=== PATIENT | male | born 1945 | race Caucasian/White ===

== ENCOUNTER → 2023-10-30 21:57 | Day surgery (SDC) | payer OTHER, SELFPAY ==
[2023-10-30] VITALS (7 sets, daily range): BP systolic 133–153; BP diastolic 60–77; BMI 23.9
--- NOTE | 2023-10-30 20:26 | ED.GENMED ---
History of Present Illness
General
Chief Complaint: Swallowing Problem
Source: patient and spouse
Exam Limitations: none
Time Seen by Provider: 10/30/23 20:10
Travel History
Have you had any contact with someone who has COVID-19?: No
Do you have any symptoms of coronavirus? Fever > 100 degrees, chills, cough, shortness of breath, sore throat, loss of taste or smell, muscle aches, or headache?: No
History of Present Illness
History of Present Illness:
Eating a burger and has a food impaction x 3 hours. Unable to swallow saliva. No chest pain or shortness of breath. Has history of similar events but usually able to pass.
Past History
Past History
ED Past Medical History: HTN, Hypercholesterolemia and NIDDM
ED Past Surgical History: Appendectomy
Review of Systems
Review of Systems
All Other Systems: Not applicable
Constitutional: Denies fever
Respiratory: Reports no symptoms
Cardiac: Reports no symptoms
Phy Exam
Physical Exam
Physical Exam:
GENERAL: Alert and oriented in no apparent distress
EYE: Orbits normal.
NECK: Supple
ENT: No drooling or stridor speech normal
CARDIAC: Regular rate and rhythm without any obvious murmurs.
LUNGS: Clear breath sounds,normal
ABDOMEN: Soft, without focal tenderness or distention
NEUROLOGICAL: Alert and oriented , grossly non-focal
SKIN: Warm and dry
PSYCH: Normal and appropriate interaction.
Course
Orders/Labs/Results
Orders:
Orders
10/30/23 20:22
IV Insert/Care/Rem.- Treatment PRN
0.9% Sodium Chloride 500 ml [Nss] 500 ml IV BOLUS
10/30/23 20:43
Basic Metabolic Panel Urgent
Complete Blood Count/With Diff Urgent
10/30/23 20:56
Lidocaine HCl/Pf [Xylocaine-Mpf 1% Vial] 50 mg .ROUTE .STK-MED ONE
Propofol [Diprivan] 40 ml .ROUTE .STK-MED
Rocuronium Fromberg [Rocuronium] 50 mg .ROUTE .STK-MED ONE
Sugammadex Sodium [Bridion] 200 mg .ROUTE .STK-MED ONE
10/30/23 21:10
HYDROmorphone [Dilaudid] 0.25 mg IV PACU-Q5MPRN PRN
HYDROmorphone [Dilaudid] 0.5 mg IV PACU-Q5MPRN PRN
Meperidine [Demerol] 12.5 mg IV PACU-Q5MPRN PRN
Ondansetron Injectable [Zofran] 4 mg IV PACU-ONCEPRN PRN
Prochlorperazine [Compazine] 5 mg IV PACU-ONCEPRN PRN
Notify MD As Directed
Notify physician if: for SDS patients with known or suspected sleep obstructive sleep apnea, monitor in the
PACU.
Notify MD for any apneic/desaturation episodes
O2 Therapy [RESP] Urgent
Titrate/Wean O2 to maintain O2 sat greater than (%): 92
Special Instructions: -Provide supplemental oxygen to achieve O2 sat of 92% or greater.
-After 15 min, may wean O2 and discontinue if patient is able to maintain O2 sat of 92%
or greater during recovery period.
If patient is a discharge home, without oxygen therapy, notify anestheiologist if
unable to maintain O2 SAT of 92% or greater on room air for MD clearance.
10/30/23 21:15
Normosol (Mult Electrolytes) [Normosol-R] 1,000 ml IV PER PROTOCOL
10/30/23 22:00
Flush (0.9% Sodium Chloride) [Flush (Nss)] See Dose Instructions IV PER PROTOCOL
Abnormal Lab Results
10/30/23
20:43
MCH 31.2 H pg
(27.0-31.0)
Abs Immat Gran (auto) 0.1 H 10^3/uL
(0-0.05)
Absolute Neuts (auto) 6.8 H 10^3/uL
(1.4-6.5)
Absolute Monos (auto) 0.7 H 10^3/uL
(0.1-0.6)
Lymphocytes % 15.7 L %
(20.5-51.1)
Chloride 108 H mmol/L
(98-107)
Carbon Dioxide 20 L mmol/L
(22-30)
Glucose 115 H mg/dl
(70-99)
10/30/23 20:43
10/30/23 20:43
Vital Signs
Initial and Last Documented VS:
Initial Vital Signs
Temp Pulse Resp BP Pulse Ox
98.9 F 90 20 153/77 98
10/30/23 19:54 10/30/23 19:54 10/30/23 19:54 10/30/23 19:54 10/30/23 19:54
Last Documented Vital Signs
Temp Pulse Resp BP Pulse Ox
98.9 F 90 20 153/77 98
10/30/23 19:54 10/30/23 19:54 10/30/23 19:54 10/30/23 19:54 10/30/23 19:54
MDM/Problems Addressed
Differential Diagnosis Includes:
Consistent with esophageal foreign body. Discussed with GI who will take up for endoscopy
*Critical Care Note
Total Time (30-74mins, 75-104mins- exclusive of procedures): Not Applicable
ED Attending Note
-
Portions of this chart may have been created with voice recognition software.� Occasional wrong word or��sound alike� substitutions may have occurred due to the inherent limitations of voice recognition software.
Discharge Plan
Departure
Patient Disposition: Admit
Date of Disposition: 10/30/23
Time of Disposition: 20:28
Admit to: GI lab
Presentation/result/management discussed w/ accepting MD/DO: Gastroenterology
Discharge Problem:
Esophageal foreign body
Interventions
Interventions:
*Risk Screen - Suicide Last Done: 10/30/23 19:56
*General Assessment Last Done: 10/30/23 19:56
*Neglect/Abuse Screening Last Done: 10/30/23 19:56
ED- Fall Risk Assessment Last Done: 10/30/23 19:56
*ED COVID-19 Vaccine History Last Done: 10/30/23 19:56
*Nursing Disposition Last Done: 10/30/23 21:50
ED-EENT Assessment Last Done: 10/30/23 21:49
CX-Suwvzs-Hqsuwlayjz Assessment Last Done: 10/30/23 21:49
ED- Pulmonary Assessment Last Done: 10/30/23 21:49
ED- Neurological Assessment Last Done: 10/30/23 21:49
Discharge Date and Time
Discharge Date/Time: 10/30/23 21:51
Print Language: KYRGYZ
[2023-10-30] MEDS: NSS 500 IV (20:43)
[2023-10-30 21:03] LABS: % Basophils 0.3 % (0-2); % Eosinophils 2.6 % (0-6); % Immature Granulocytes 0.5 % (0-0.5); % Lymphocytes 15.7 % (20.5-51.1); % Monocytes 7.9 % (1.7-9.3); Absolute Eosinophils 0.2 10^3/uL (0-0.7); Absolute Immature Granulocytes 0.1 10^3/uL (0-0.05); Absolute Lymphocytes 1.5 10^3/uL (1.2-3.4); Absolute Monocytes 0.7 10^3/uL (0.1-0.6); Absolute Neutrophils 6.8 10^3/uL (1.4-6.5); Hematocrit 41.3 % (39.0-52.0); Hemoglobin 14.7 g/dL (13.0-18.0); Mean Corp Hgb Conc. 35.6 g/dL (33.0-37.0); Mean Corpuscular Hgb 31.2 pg (27.0-31.0); Mean Corpuscular Volume 87.7 fL (80.0-94.0); Mean Platelet Volume 9.7 fL (7.4-10.4); Nucleated Red Blood Cells % 0 % (-); Platelet Count 239 10^3/uL (130-400); Red Blood Cell Count 4.71 10^6/uL (4.70-6.10); Red Cell Dist. Width 12.4 % (11.5-14.5); White Blood Cell Count 9.3 10^3/uL (4.8-10.8)
[2023-10-30 21:08] LABS: Blood Urea Nitrogen 19 mg/dl (9-20); Calcium 9.6 mg/dl (8.4-10.2); Carbon Dioxide 20 mmol/L (22-30); Chloride 108 mmol/L (98-107); Glucose 115 mg/dl (70-99); Potassium 4.2 mmol/L (3.5-5.1); Sodium 140 mmol/L (135-145); eGFR > 60.00
--- NOTE | 2023-10-30 21:15 | CON.GI ---
Consultation
-
Date/Time Consultation Requested: 10/30/2023
Date/Time Consultation Performed: 10/30/2023
Requesting Provider: ED
Performing Provider: Isidoro ORNELAS
Reason for Consultation: food impaction
Medical History
Chief Complaint / HPI
Chief Complaint: dysphagia
History of Present Illness:
78 y/o male admitted to ED c/o sensation of food impaction after eating hamburger three hours back. Unable to swallow saliva. denies any chest pain/ SOB . intermittent difficulty swallowing in the past .no prior EGD
Past Medical History
Past Medical History: HTN, Hypercholesterolemia and NIDDM
Past Surgical History: Appendectomy
Social History
Alcohol: None
Drug: None
Allergies / Home Medications
Allergy/AdvReac Type Severity Reaction Status Date / Time
No Known Allergies Allergy Verified 10/30/23 19:56
Review of Systems
-
All other systems: A 12 pt ROS was Negative except as stated above in HPI
Vital Signs
Temp Pulse Resp BP Pulse Ox
98.9 F 90 20 153/77 98
10/30/23 19:54 10/30/23 19:54 10/30/23 19:54 10/30/23 19:54 10/30/23 19:54
Physical Exam
Exam
General: Well Developed
Respiratory: Clear
Cardiac: S1/S2
GI: Soft, Non Tender, Non Distended and Normal Bowel Sounds
Neuro: AO x 3
Results
Sodium 140 mmol/L (135-145) 10/30/23 20:43
Potassium 4.2 mmol/L (3.5-5.1) 10/30/23 20:43
Chloride 108 mmol/L (98-107) H 10/30/23 20:43
Carbon Dioxide 20 mmol/L (22-30) L 10/30/23 20:43
BUN 19 mg/dl (9-20) 10/30/23 20:43
Creatinine 0.8 mg/dL (0.7-1.3) 10/30/23 20:43
Calcium 9.6 mg/dl (8.4-10.2) 10/30/23 20:43
Diagnostic Image Results:
Prior GI Procedures:
EGD:
Colonoscopy:
Assessment / Plan
-
78 y/o male admitted with food impaction after eating hamburger three hours back. Unable to tolerate secretions .intermittent dysphagia in the past. No prior EGD
Food impaction
plan
NPO
will schedule urgent EGD with removal of food bolus
Total Time Spent with Patient (in minutes): 55
-
-
Thank you for consultation and allowing me to participate in the patient's care. Please call the contract project manager GI physician during the after hours with any questions or concerns.
[2023-10-30 22:40] LABS: Glucose - Point of Care 141 mg/dl (70-99)
== END ==
LOC: EMR 19:52 → GI 21:57
PROVIDERS: ATTENDING PHYSICIAN Internal Medicine Gastroenterology; EMERGENCY PHYSICIAN Emergency Medicine; FAMILY PHYSICIAN Internal Medicine
DX: C15.9 Malignant neoplasm of esophagus, unspecified (principal); K22.70 Barrett's esophagus without dysplasia; T18.128A Food in esophagus causing other injury, initial encounter; W44.F3XA Food entering into or through a natural orifice, initial encounter; K22.2 Esophageal obstruction; K31.89 Other diseases of stomach and duodenum
CPT/HCPCS: 43247; 43239; 88305; 80048; 82962; 85025; 88342; 88360; 96360; 99284

== ENCOUNTER → 2023-11-18 09:49 | Outpatient (REF) | payer OTHER, SELFPAY | LOC: RAD 09:49 | PROVIDERS: ATTENDING PHYSICIAN Internal Medicine Hematology & Oncology; FAMILY PHYSICIAN Internal Medicine | DX: C15.4 Malignant neoplasm of middle third of esophagus (principal) | CPT/HCPCS: 71260; 74177; Q9967 ==

== ENCOUNTER 2023-11-19 06:12 | Day surgery (SDC) | payer OTHER, SELFPAY ==
[2023-11-19 15:09] LABS: Glucose - Point of Care 127 mg/dl (70-99)
[2023-11-19 15:10] VITALS: BP 155/80
[2023-11-19 15:21] VITALS: BMI 23.2
[2023-11-19 16:45] VITALS: BP 119/68
[2023-11-19 17:00] VITALS: BP 132/71
[2023-11-19 17:13] VITALS: BP 132/69
== END 2023-11-19 17:38 | disposition home or self-care (01) ==
LOC: SDS 06:12
PROVIDERS: ATTENDING PHYSICIAN Internal Medicine Gastroenterology
DX: C15.9 Malignant neoplasm of esophagus, unspecified (principal); K22.2 Esophageal obstruction; K44.9 Diaphragmatic hernia without obstruction or gangrene; R59.0 Localized enlarged lymph nodes
CPT/HCPCS: 43259; 82962

== ENCOUNTER → 2024-01-10 16:04 | Outpatient (REF) | payer OTHER, SELFPAY ==
[2024-01-10 15:03] LABS: % Basophils 0.9 % (0-2); % Eosinophils 4.5 % (0-6); % Immature Granulocytes 0.3 % (0-0.5); % Lymphocytes 19.2 % (20.5-51.1); % Neutrophils 65.1 % (42.2-75.2); Absolute Basophils 0.1 10^3/uL (0-0.2); Absolute Eosinophils 0.3 10^3/uL (0-0.7); Absolute Lymphocytes 1.3 10^3/uL (1.2-3.4); Absolute Monocytes 0.7 10^3/uL (0.1-0.6); Absolute Neutrophils 4.4 10^3/uL (1.4-6.5); Hematocrit 42.5 % (39.0-52.0); Hemoglobin 15.1 g/dL (13.0-18.0); Mean Corp Hgb Conc. 35.5 g/dL (33.0-37.0); Mean Corpuscular Hgb 30.6 pg (27.0-31.0); Mean Corpuscular Volume 86.2 fL (80.0-94.0); Mean Platelet Volume 10.2 fL (7.4-10.4); Nucleated Red Blood Cells % 0 % (-); Platelet Count 257 10^3/uL (130-400); Red Blood Cell Count 4.93 10^6/uL (4.70-6.10); Red Cell Dist. Width 12.7 % (11.5-14.5); White Blood Cell Count 6.7 10^3/uL (4.8-10.8)
[2024-01-10 15:15] LABS: ALT (SGPT) 22 U/L (0-50); AST (SGOT) 24 U/L (17-59); Albumin 4.5 g/dl (3.5-5.0); Alkaline Phosphatase 84 U/L (38-126); Blood Urea Nitrogen 21 mg/dl (9-20); Calcium 9.4 mg/dl (8.4-10.2); Carbon Dioxide 24 mmol/L (22-30); Chloride 103 mmol/L (98-107); Glucose 150 mg/dl (70-99); Potassium 4.9 mmol/L (3.5-5.1); Sodium 135 mmol/L (135-145); Total Bilirubin 0.9 mg/dl (0.2-1.3); Total Protein 7.1 g/dl (6.3-8.2); eGFR > 60.00
== END ==
LOC: OIDL 16:04
PROVIDERS: ATTENDING PHYSICIAN Internal Medicine Hematology & Oncology
DX: C15.4 Malignant neoplasm of middle third of esophagus (principal)
CPT/HCPCS: 80053; 85025

== ENCOUNTER → 2024-01-26 13:25 | Outpatient (REF) | payer OTHER, SELFPAY ==
[2024-01-26 11:27] LABS: % Basophils 0.1 % (0-2); % Eosinophils 1.8 % (0-6); % Immature Granulocytes 0.9 % (0-0.5); % Monocytes 4.9 % (1.7-9.3); % Neutrophils 89.3 % (42.2-75.2); Absolute Eosinophils 0.1 10^3/uL (0-0.7); Absolute Immature Granulocytes 0.1 10^3/uL (0-0.05); Absolute Lymphocytes 0.2 10^3/uL (1.2-3.4); Absolute Monocytes 0.3 10^3/uL (0.1-0.6); Hematocrit 44.3 % (39.0-52.0); Hemoglobin 15.5 g/dL (13.0-18.0); Mean Corpuscular Hgb 30.8 pg (27.0-31.0); Mean Corpuscular Volume 87.9 fL (80.0-94.0); Mean Platelet Volume 10.1 fL (7.4-10.4); Platelet Count 200 10^3/uL (130-400); Red Blood Cell Count 5.04 10^6/uL (4.70-6.10); Red Cell Dist. Width 11.9 % (11.5-14.5); White Blood Cell Count 6.7 10^3/uL (4.8-10.8)
[2024-01-26 13:54] LABS: ALT (SGPT) 18 U/L (0-50); AST (SGOT) 21 U/L (17-59); Albumin 4.4 g/dl (3.5-5.0); Alkaline Phosphatase 100 U/L (38-126); Blood Urea Nitrogen 29 mg/dl (9-20); Calcium 9.3 mg/dl (8.4-10.2); Carbon Dioxide 23 mmol/L (22-30); Chloride 99 mmol/L (98-107); Glucose 282 mg/dl (70-99); Potassium 4.8 mmol/L (3.5-5.1); Sodium 131 mmol/L (135-145); Total Bilirubin 1.1 mg/dl (0.2-1.3); Total Protein 6.9 g/dl (6.3-8.2); eGFR > 60.00
== END ==
LOC: OIDL 13:25
PROVIDERS: ATTENDING PHYSICIAN Internal Medicine Hematology & Oncology
DX: C15.4 Malignant neoplasm of middle third of esophagus (principal)
CPT/HCPCS: 80053; 85025

== ENCOUNTER 2024-02-06 00:49 | Emergency (ER) | payer OTHER, SELFPAY ==
[2024-02-06 00:53] VITALS: BP 122/64
--- NOTE | 2024-02-06 01:11 | ED.GENMED ---
History of Present Illness
<Christian Herrera DO - Last Filed: 02/06/24 05:32>
General
Chief Complaint: Chest Pain
Time Seen by Provider: 02/06/24 01:02
<MONCHO Yadav (Lenka) - Last Filed: 02/07/24 00:12>
General
Source: patient and spouse
Exam Limitations: none
Nursing documentation reviewed up to this point in time: agreed with
History of Present Illness
History of Present Illness:
Pt is a 78yo male with PMHx esophageal CA (receiving chemo/radiation, last treatment 3d ago, 02/02), HTN/HLD, NIDDM who presents to the ED with concerns over chest pain x 6 hours. Around 1900 last night (02/04) pt was sitting watching TV when
he developed sudden onset aching to B/L upper chest, posterior neck, top of the head, and under B/L eyes. He took Tylenol at this time. At 2330 he took Advil, with no relief. He reports dyspnea with inspiration, and both the pain/dyspnea are worse
when supine. He endorses epigastric/periumbilical pain new in onset. He has also since developed a dull BERNARDO to B/L temples. He notes that he always has intermittent R infraorbital sinus pressure, but it is worse right now. Pt states that when laying
he does not feel lightheaded, but if he stood up believes he would feel lightheaded and imbalanced. He denies fevers, chills, dizziness, dysphagia, rhinorrhea/congestion, tinnitus, N/V, chest palpitations, muscle weakness changes to urination,
rashes. He does note that he may be constipated as his last BM was 2d ago, but it was formed. No recent illness, no known sick contacts, no recent travel, no known injury.
Flushing noted to upper chest, per , the flushing may be a side effect of radiation, but she has never noticed this with prior treatments.
Pt has had treatments for his esophageal cancer with no complications or side effects prior.
Past History
<Christian Herrera DO - Last Filed: 02/06/24 05:32>
Past History
ED Past Medical History: HTN, Hypercholesterolemia and NIDDM
ED Past Surgical History: Appendectomy
<MONCHO Yadav (Lenka) - Last Filed: 02/07/24 00:12>
Past History
ED Past Medical History: Cancer (esophageal s/p radiation and chemotherapy (01/2024))
Social History
Personal:
Living: with family
Phy Exam
<MONCHO Yadav (Lenka) - Last Filed: 02/07/24 00:12>
General Physical Exam
General Presentation: moderate distress (when reclined/supine, pt only comfortable in bed when sitting near 75-90 degree lauren)
General age: appears stated age
General Skin: warm, flushed (mildly flushed in shawl distribution) and other (clammy skin on back)
General Habitus: normal and elderly
General Mental: alert
General Hydration: appears well hydrated
ENT Exam
ENT Exam: lymphnodes (non-tender, non-palpable lymphadenopathy) and swallowing well
Eye Exam
Eye Exam: conjunctiva normal
Cardiovascular Exam
Cardiovascular Exam: regular rate/rhythm, no edema, no gallop and no murmur
Heart Sounds: normal
Pulmonary Exam
Pulmonary Exam: lungs clear, no respiratory distress, no rales, chest non tender (chest pain not reproducible), no rhonchi and no wheezing
Oxygen Status: room air
Cough: no cough
Gastrointestinal Exam
Gastrointestinal Exam: normal bowel sounds, soft, non distended and tender (epigastric)
Palpation: left upper quadrant: No tenderness, left lower quadrant: No tenderness, right upper quadrant: No tenderness, right lower quadrant: No tenderness and generalized: Other (epigastric)
Auscultation of Abdomen: normal
Neurological Exam
Neurological Exam: alert, oriented x3 and speech normal
Scores
<ST Yadav (Lenka)CA - Last Filed: 02/07/24 00:12>
Heart Score for Chest Pain Patients
STEMI patient?: No
History: Slightly or Non-Suspicious
ECG: Nonspecific Repolarization
Age: >/= 65 years
Risk Factors: 1 or 2 Risk Factors
Troponin: >1 - <3 x Normal Limit
Heart Score for Chest Pain Patients: 5
Heart Score Risk: 20.3% MACE over next 6 weeks
Course
<Christian Herrera DO - Last Filed: 02/06/24 05:32>
Orders/Labs/Results
Orders:
Orders
02/06/24 00:57
Electrocardiogram (*1) Urgent
Reason for Study: Chest Pain
EKG- Treatment ONCE
02/06/24 01:12
Electrocardiogram (*1) Stat
Reason for Study: Other
Other Reason for Exam: chest pain
EKG- Treatment ONCE
02/06/24 01:40
Complete Blood Count/With Diff Urgent
Comprehensive Metabolic Panel Urgent
Magnesium Urgent
NT-proBNP Urgent
PTT Urgent
Prothrombin Time Urgent
TSH Urgent
Troponin I Urgent
02/06/24 02:09
Morphine Sulfate 4 mg IV NOW STA
Ondansetron Injectable [Zofran] 4 mg IV NOW STA
02/06/24 02:17
Heparin Pf [Heparin Lock Flush] 500 unit .ROUTE .STK-MED ONE
02/06/24 02:[address] [CT Chest Pe Study] Urgent
Comment:
Reason For Exam: new onset chest pain
02/06/24 03:59
Ibuprofen [Motrin] 600 mg PO NOW STA
02/06/24 04:35
Troponin I Urgent
Abnormal Lab Results
02/06/24
01:40
RBC 4.26 L 10^6/uL
(4.70-6.10)
Hct 36.0 L %
(39.0-52.0)
Absolute Lymphs (auto) 0.1 L 10^3/uL
(1.2-3.4)
Neutrophils % 90.6 H %
(42.2-75.2)
Lymphocytes % 1.4 L %
(20.5-51.1)
Sodium 131 L mmol/L
(135-145)
Carbon Dioxide 20 L mmol/L
(22-30)
Glucose 151 H mg/dl
(70-99)
02/06/24 01:40
02/06/24 01:40
Vital Signs
Initial and Last Documented VS:
Initial Vital Signs
Temp Pulse Resp BP Pulse Ox
97.9 F 112 24 122/64 100
02/06/24 00:53 02/06/24 00:53 02/06/24 00:53 02/06/24 00:53 02/06/24 00:53
Last Documented Vital Signs
Temp Pulse Resp BP Pulse Ox
98.4 F 101 20 111/65 98
02/06/24 01:12 02/06/24 04:30 02/06/24 04:30 02/06/24 04:00 02/06/24 04:30
<MONCHO Yadav (Lenka) - Last Filed: 02/07/24 00:12>
Orders/Labs/Results
Orders:
Orders
02/06/24 00:57
Electrocardiogram (*1) Urgent
Reason for Study: Chest Pain
EKG- Treatment ONCE
02/06/24 01:12
Electrocardiogram (*1) Stat
Reason for Study: Other
Other Reason for Exam: chest pain
EKG- Treatment ONCE
02/06/24 01:40
Complete Blood Count/With Diff Urgent
Comprehensive Metabolic Panel Urgent
Magnesium Urgent
NT-proBNP Urgent
PTT Urgent
Prothrombin Time Urgent
TSH Urgent
Troponin I Urgent
02/06/24 02:09
Morphine Sulfate 4 mg IV NOW STA
Ondansetron Injectable [Zofran] 4 mg IV NOW STA
02/06/24 02:17
Heparin Pf [Heparin Lock Flush] 500 unit .ROUTE .STK-MED ONE
02/06/24 02:[address] [CT Chest Pe Study] Urgent
Comment:
Reason For Exam: new onset chest pain
02/06/24 03:59
Ibuprofen [Motrin] 600 mg PO NOW STA
02/06/24 04:35
Troponin I Urgent
Abnormal Lab Results
02/06/24
01:40
RBC 4.26 L 10^6/uL
(4.70-6.10)
Hct 36.0 L %
(39.0-52.0)
Absolute Lymphs (auto) 0.1 L 10^3/uL
(1.2-3.4)
Neutrophils % 90.6 H %
(42.2-75.2)
Lymphocytes % 1.4 L %
(20.5-51.1)
Sodium 131 L mmol/L
(135-145)
Carbon Dioxide 20 L mmol/L
(22-30)
Glucose 151 H mg/dl
(70-99)
02/06/24 01:40
02/06/24 01:40
Vital Signs
Initial and Last Documented VS:
Initial Vital Signs
Temp Pulse Resp BP Pulse Ox
97.9 F 112 24 122/64 100
08/18/24 00:53 02/06/24 00:53 02/06/24 00:53 02/06/24 00:53 02/06/24 00:53
Last Documented Vital Signs
Temp Pulse Resp BP Pulse Ox
98.4 F 101 20 111/65 98
02/06/24 01:12 02/06/24 04:30 02/06/24 04:30 02/06/24 04:00 02/06/24 04:30
<MONCHO Yadav (Lenka) - Last Filed: 02/07/24 00:12>
MDM/Problems Addressed
Differential Diagnosis Includes:
DDx: ACS vs complication s/p chemo/radiation vs
Pt with esophageal cancer s/p receiving radiation/chemo (round ) 3d ago on 02/02 presenting with 6 hours of upper chest pain from the nipple line up through the scalp, worse with inspiration, worse in posterior neck. Chest and neck pain not
reproducible on exam. Able to reproduce epigastric pain.
Will order CBC, CMP, troponin, TSH, pro-BNP, coag panel, EKG, magnesium.
EKG (106) - sinus tachycardia, inferior infarct (age undetermined) (machine read)
EKG (116) - sinus tachycardia (machine read)
Chronic conditions affecting care: Cancer (esophageal CA s/p radiation and chemotherapy, last treatment 02/03/24)
<MONCHO Yadav (Lenka) - Last Filed: 02/07/24 00:12>
*Critical Care Note
Total Time (30-74mins, 75-104mins- exclusive of procedures): Not Applicable
<Christian Herrera DO - Last Filed: 02/06/24 05:32>
Update Note
Update Note:
Initial Troponin I (0140) - 0.031
02/05 0335 - pt still in pain with inspiration, posterior neck pain. Minimal relief with morphine. Pt not requesting any more pain medication.
CTA chest with IV contrast
IMPRESSION:
No pulmonary embolus. Aortic atherosclerotic disease. Coronary artery disease.
Mild cardiomegaly. Small pericardial effusion. No pneumothorax or pleural effusion. Central airways patent. Dependent atelectasis. Calcified right adrenal nodule is similar to prior imaging.
Finalized at 3:36 AM EST
<MONCHO Yadav (Lenka) - Last Filed: 02/07/24 00:12>
Update Note
Update Note:
02/05 0335 - pt still in pain with inspiration, posterior neck pain. Minimal relief with morphine. Pt not requesting any more pain medication.
CTA chest with IV contrast
IMPRESSION:
No pulmonary embolus. Aortic atherosclerotic disease. Coronary artery disease.
Mild cardiomegaly. Small pericardial effusion. No pneumothorax or pleural effusion. Central airways patent. Dependent atelectasis. Calcified right adrenal nodule is similar to prior imaging.
Finalized at 3:36 AM EST
02/05 0400 - pt requesting motrin, does not want more morphine. Informed pt of plan to redraw troponin at 0430
Initial Troponin I (0140) - 0.031
Repeat Troponin I (0435) - 0.019
02/05 0509 - pt comfortable laying supine with slight head elevation. states he feels comfortable going home with outpatient f/u with his radiation doc in 2d (Wednesday 02/07)
ED Attending Note
<Christian Herrera DO - Last Filed: 02/06/24 05:32>
ED Attending Note
Patient seen and examined by attending physician: Yes
I performed the substantive portion of visit, reviewed & personally made and approve the management plan that is documented in note by myself or DONNELL.: Yes
ED Attending Note:
Pleasant 78-year-old male that presents with chest pain that is been present for the last 6 hours. Patient has a recent history of esophageal cancer this receiving chemotherapy and radiation with his last treatment 3 days ago. Patient also
complains of left-sided neck pain. He has been lightheaded and dizzy. Patient denies fever or chills. Patient was seen in conjunction with the PA student. I have reviewed and agree with the history and treatment plan presented. On my
independent physical exam, patient is awake, alert, and oriented x3, moderate acute distress secondary to neck pain and dyspnea. Heart is regular rate and rhythm. Lungs are clear without wheezes rales or rhonchi present. No edema present.
-
Portions of this chart may have been created with voice recognition software.� Occasional wrong word or��sound alike� substitutions may have occurred due to the inherent limitations of voice recognition software.
Discharge Plan
Departure
Patient Disposition: Home (Routine Discharge)
Date of Disposition: 02/06/24
Time of Disposition: 05:08
Patient with high blood pressure during this ER visit?: No
Condition: Good
Discharge Problem:
Chest pain
Instructions: Chest Pain DCA Follow Up, Chest Pain PCP Follow Up
Prescriptions:
No Action
metformin 500 mg Tablet
500 mg PO DAILY
repaglinide 1 mg Tablet
1 mg PO BID
rosuvastatin 40 mg Tablet
40 mg PO DAILY
Januvia 100 mg Tablet
100 mg PO DAILY
Jardiance 10 mg Tablet
10 mg PO DAILY
lisinopril
12.5 mg PO HS
Referrals:
Jesus Alvarez MD [Family Provider] -
Activity Restrictions/Additional Instructions:
It was a pleasure meeting you and taking part in your care. We hope for your continued healing and wellness.
Please read discharge instructions in their entirety. However, they are for general education and may not describe your exact diagnosis at discharge. Information on your ER visit and medical conditions were discussed with you along with appropriate
follow up information...
If indicated, please take your medications as instructed and indicated on discharge paperwork.
Please schedule a follow up appointment as directed. Call to schedule an appointment
Please return to the emergency department with ANY change in, persisting, or worsening of symptoms. If any of your symptoms do not improve, or persist, or become more severe within 6-12 hours, please return to the emergency department for further
care.
Please return to the emergency department if you develop a headache, neck pain/stiffness, fever greater than 100.4F, chest pain, shortness of breath, persistent nausea, vomiting, slurred speech, difficulty walking, numbness/tingling, weakness, signs
of infection or any other symptoms that are worrisome to you.
If you have any questions or concerns please do not hesitate to call the Hospital at or E-mail me directly at [email or web address]
Interventions
Interventions:
*Risk Screen - Suicide Last Done: 02/06/24 01:12
*General Assessment Last Done: 02/06/24 01:12
*Neglect/Abuse Screening Last Done: 02/06/24 01:12
ED- Fall Risk Assessment Last Done: 02/06/24 05:45
*ED COVID-19 Vaccine History Last Done: 02/06/24 01:12
*Nursing Disposition Last Done: 02/06/24 05:45
ED- Cardiac Assessment Last Done: 02/06/24 01:12
Discharge Date and Time
Discharge Date/Time: 02/06/24 05:45
Print Language: MAORI
[2024-02-06 01:12] VITALS: BMI 22.8
[2024-02-06 01:15] VITALS: BP 107/69
[2024-02-06 01:57] LABS: % Basophils 0.3 % (0-2); % Eosinophils 0.8 % (0-6); % Immature Granulocytes 0.5 % (0-0.5); % Lymphocytes 1.4 % (20.5-51.1); % Monocytes 6.4 % (1.7-9.3); % Neutrophils 90.6 % (42.2-75.2); Absolute Eosinophils 0.1 10^3/uL (0-0.7); Absolute Lymphocytes 0.1 10^3/uL (1.2-3.4); Absolute Monocytes 0.4 10^3/uL (0.1-0.6); Absolute Neutrophils 5.7 10^3/uL (1.4-6.5); Hemoglobin 13.2 g/dL (13.0-18.0); Mean Corp Hgb Conc. 36.7 g/dL (33.0-37.0); Mean Corpuscular Volume 84.5 fL (80.0-94.0); Mean Platelet Volume 10.3 fL (7.4-10.4); Nucleated Red Blood Cells % 0 % (-); Platelet Count 169 10^3/uL (130-400); Red Blood Cell Count 4.26 10^6/uL (4.70-6.10); Red Cell Dist. Width 12.4 % (11.5-14.5); White Blood Cell Count 6.3 10^3/uL (4.8-10.8)
[2024-02-06 02:00] VITALS: BP 105/60
[2024-02-06 02:01] LABS: ALT (SGPT) 17 U/L (0-50); AST (SGOT) 22 U/L (17-59); Albumin 3.9 g/dl (3.5-5.0); Alkaline Phosphatase 87 U/L (38-126); Blood Urea Nitrogen 19 mg/dl (9-20); Calcium 8.9 mg/dl (8.4-10.2); Carbon Dioxide 20 mmol/L (22-30); Chloride 104 mmol/L (98-107); Estimated Creatinine Clearance 74 ml/min; Glucose 151 mg/dl (70-99); Magnesium 1.8 mg/dl (1.6-2.3); Potassium 4.2 mmol/L (3.5-5.1); Sodium 131 mmol/L (135-145); Total Bilirubin 0.8 mg/dl (0.2-1.3); Total Protein 6.3 g/dl (6.3-8.2); eGFR > 60.00
[2024-02-06 02:05] LABS: INR 1.02; PT 13.2 Sec (11.4-14.6)
[2024-02-06 02:06] LABS: APTT 29.2 Sec (23.4-35.0)
[2024-02-06 02:15] LABS: NT-proBNP 393 pg/ml; Troponin I 0.031 ng/ml
[2024-02-06] MEDS: ZOFRAN 4 MG IV (02:19)
[2024-02-06] MEDS: MORPHINE SULFATE 4 MG IV (02:20)
[2024-02-06 02:32] LABS: TSH 1.36 uIU/ml (0.47-4.68)
[2024-02-06 03:00] VITALS: BP 100/59
[2024-02-06 04:00] VITALS: BP 111/65
[2024-02-06] MEDS: MOTRIN 600 MG PO (04:27)
[2024-02-06 05:05] LABS: Troponin I 0.019 ng/ml
== END 2024-02-06 05:45 | disposition home or self-care (01) ==
LOC: EMR 00:49
PROVIDERS: EMERGENCY PHYSICIAN Student in an Organized Health Care Education/Training Program; FAMILY PHYSICIAN Internal Medicine
DX: R07.89 Other chest pain (principal); I10 Essential (primary) hypertension; E78.00 Pure hypercholesterolemia, unspecified; E11.9 Type 2 diabetes mellitus without complications; C15.9 Malignant neoplasm of esophagus, unspecified
CPT/HCPCS: 99285; 96374; 96375; 71275; 80053; 83735; 83880; 84443; 84484; 85025; 85610; 85730; 93005; Q9967

== ENCOUNTER 2024-04-27 06:12 | Day surgery (SDC) | payer OTHER, SELFPAY ==
[2024-04-27 11:28] VITALS: BMI 24.0
[2024-04-27 11:30] VITALS: BMI 24.0
[2024-04-27 11:33] VITALS: BP 144/76
[2024-04-27 11:39] LABS: Glucose - Point of Care 167 mg/dl (70-99)
[2024-04-27 13:34] LABS: Glucose - Point of Care 147 mg/dl (70-99)
[2024-04-27 16:06] VITALS: BP 95/62
[2024-04-27 16:15] VITALS: BP 96/60
[2024-04-27 16:33] LABS: Glucose - Point of Care 127 mg/dl (70-99)
== END 2024-04-27 16:38 | disposition home or self-care (01) ==
LOC: SDS 06:12
PROVIDERS: ATTENDING PHYSICIAN Internal Medicine Gastroenterology
DX: C15.9 Malignant neoplasm of esophagus, unspecified (principal); K22.89 Other specified disease of esophagus; K22.10 Ulcer of esophagus without bleeding
CPT/HCPCS: 43239; 88305; 82962; 88342

== ENCOUNTER 2024-06-26 14:39 | Emergency (ER) | payer OTHER, SELFPAY ==
[2024-06-26 14:47] VITALS: BP 150/73
--- NOTE | 2024-06-26 14:51 | ED.GENMED ---
ED Provider Triage
<Jason Sykes Jr., PA-C - Last Filed: 06/26/24 14:52>
-
Patient seen by provider in Triage?: Seen in Triage
Attestation: A medical screening examination has been initiated by a qualified medical provider. Based on the assessment performed at this time, it has been determined that an emergent medical condition may exist and the patient has been informed
that further medical evaluation and possible additional diagnostic testing may be needed.
HPI: 78-year-old male presenting to the emergency department after passing out twice this morning. First event was in at home felt lightheaded passed out to the ground unsure of any specific trauma then was brushing off some snow outside had a
similar event unwitnessed. Unsure if he hit his head. Not on blood thinners. Labs EKG and CT scan ordered for further assessment. Currently without significant symptoms.
GENERAL: Alert , in no apparent distress
EYE: No visual abnormalities.
NECK: Trachea midline
ENT: No visible abnormalities.
LUNGS: No acute respiratory distress
NEUROLOGICAL: Alert and oriented
SKIN: Skin intact. No visible changes.
MUSCULOSKELETAL: Moving extremities normally
PSYCH: Normal and appropriate interaction.
This is a medical evaluation conducted in person to initiate diagnostic evaluation and provide initial therapeutics. Please see further documentation by the treating clinician.
History of Present Illness
<Jason Sykes Jr., PA-C - Last Filed: 06/26/24 14:52>
General
Chief Complaint: Fainting/Passed Out
Time Seen by Provider: 06/26/24 18:18
<Ricardo Valadez PA-C - Last Filed: 06/26/24 19:00>
General
Source: patient
Exam Limitations: none
History of Present Illness
History of Present Illness:
78-year-old male presents for evaluation of passing out episode x 2 today. This morning he was walking around the house he sat down after blowing his nose and he started feeling lightheaded and fell over onto the floor. His heard him fall and
he was awake and alert when she encountered him. He was feeling well he was going about his normal routine afterwards and was outside brushing snow off a car and again he felt lightheaded and he found himself on the ground. There was no chest pain
headache or injury from these falls. He was able to get himself off the ground and walk himself inside the house. Since being here he states he is felt normal he denies chest pain vomiting shortness of breath dizziness lightheadedness headache
currently. He has a history of esophageal cancer requiring chemo and radiation which was finished in January 2024. No recent travel or surgery. No leg swelling or calf pain. He is not anticoagulated. No other complaints at this time
Past History
<Jason Sykes Jr., PA-C - Last Filed: 06/26/24 14:52>
Past History
ED Past Medical History: Cancer (esophageal s/p radiation and chemotherapy (01/2024)), HTN, Hypercholesterolemia and NIDDM
ED Past Surgical History: Appendectomy
Social History
Personal:
Living: with family
Phy Exam
<Ricardo Valadez PA-C - Last Filed: 06/26/24 19:00>
Physical Exam
Physical Exam:
General: Well-appearing male no acute respiratory distress
HEENT: Normocephalic atraumatic
Heart: Regular rate and rhythm no murmurs
Lungs: Clear no wheeze
Neurologic exam: Alert and oriented normal gait no facial asymmetry no dysarthria or aphasia
Musculoskeletal exam: No spine tenderness. Good range of motion all extremities
Abdomen is soft nontender nondistended no guarding or rebound
Course
<SUNDAY Umana Jr. Last Filed: 06/26/24 14:52>
Orders/Labs/Results
Orders:
Orders
06/26/24 14:41
Electrocardiogram (*1) Urgent
Reason for Study: Syncope
06/26/24 14:42
EKG- Treatment ONCE
06/26/24 14:50
CT Head W/o Iv Contrast Urgent
Comment:
Reason For Exam: syncope, unknown head strike
06/26/24 14:52
Complete Blood Count/With Diff Urgent
Comprehensive Metabolic Panel Urgent
Troponin I Urgent
Abnormal Lab Results
06/26/24
14:52
RBC 4.60 L 10^6/uL
(4.70-6.10)
MCH 31.5 H pg
(27.0-31.0)
Absolute Lymphs (auto) 0.6 L 10^3/uL
(1.2-3.4)
Neutrophils % 79.5 H %
(42.2-75.2)
Lymphocytes % 8.5 L %
(20.5-51.1)
Glucose 114 H mg/dl
(70-99)
06/26/24 14:52
06/26/24 14:52
Vital Signs
Initial and Last Documented VS:
Initial Vital Signs
Temp Pulse Resp BP Pulse Ox
98.4 F 86 18 150/73 100
06/26/24 14:47 06/26/24 14:47 06/26/24 14:47 06/26/24 14:47 06/26/24 14:47
Last Documented Vital Signs
Temp Pulse Resp BP Pulse Ox
97.9 F 94 18 142/72 97
06/26/24 17:11 06/26/24 17:11 06/26/24 17:11 06/26/24 17:11 06/26/24 17:11
<Ricardo Valadez PA-C - Last Filed: 06/26/24 19:00>
Orders/Labs/Results
Orders:
Orders
06/26/24 14:41
Electrocardiogram (*1) Urgent
Reason for Study: Syncope
06/26/24 14:42
EKG- Treatment ONCE
06/26/24 14:50
CT Head W/o Iv Contrast Urgent
Comment:
Reason For Exam: syncope, unknown head strike
06/26/24 14:52
Complete Blood Count/With Diff Urgent
Comprehensive Metabolic Panel Urgent
Troponin I Urgent
Abnormal Lab Results
06/26/24
14:52
RBC 4.60 L 10^6/uL
(4.70-6.10)
MCH 31.5 H pg
(27.0-31.0)
Absolute Lymphs (auto) 0.6 L 10^3/uL
(1.2-3.4)
Neutrophils % 79.5 H %
(42.2-75.2)
Lymphocytes % 8.5 L %
(20.5-51.1)
Glucose 114 H mg/dl
(70-99)
06/26/24 14:52
06/26/24 14:52
Vital Signs
Initial and Last Documented VS:
Initial Vital Signs
Temp Pulse Resp BP Pulse Ox
98.4 F 86 18 150/73 100
06/26/24 14:47 06/26/24 14:47 06/26/24 14:47 06/26/24 14:47 06/26/24 14:47
Last Documented Vital Signs
Temp Pulse Resp BP Pulse Ox
97.9 F 94 18 142/72 97
06/26/24 17:11 06/26/24 17:11 06/26/24 17:11 06/26/24 17:11 06/26/24 17:11
<Ricardo Valadez PA-C - Last Filed: 06/26/24 19:00>
MDM/Problems Addressed
Differential Diagnosis Includes:
Falls x 2. Question syncope. Unlikely to be seizure and there is no description of postictal phase. Concern for arrhythmia anemia electrolyte abnormality or vasovagal episodes
Patient has no complaints currently. He has been waiting in the waiting room states he feels fine and expresses his desire to go home. Workup was initiated through triage. CT head normal. Labs reviewed without significant finding no electrolyte
abnormality. EKG initially showed sinus tachycardia with a rate of 103. He has chronic Q waves inferiorly. No new findings on the EKG.
He has been ambulatory here and has not had any further symptoms.
Discussed with patient regarding treatment options given the multiple episodes of syncope would consider keeping him in the hospital however patient would rather go home. I would recommend he does not drive until cleared to do so by cardiology. He
will be referred to cardiology. Turn precautions were given.
<Ricardo Valadez PA-C - Last Filed: 06/26/24 19:00>
*Critical Care Note
Total Time (30-74mins, 75-104mins- exclusive of procedures): Not Applicable
ED Attending Note
<Jason Sykes Jr., PA-C - Last Filed: 06/26/24 14:52>
-
Portions of this chart may have been created with voice recognition software.� Occasional wrong word or��sound alike� substitutions may have occurred due to the inherent limitations of voice recognition software.
Discharge Plan
Departure
Patient Disposition: Home (Routine Discharge)
Date of Disposition: 06/26/24
Time of Disposition: 18:59
Patient with high blood pressure during this ER visit?: No
Discharge Problem:
Syncope
Instructions: Syncope (Fainting) (DC)
Prescriptions:
No Action
metformin 500 mg Tablet
500 mg PO DAILY
repaglinide 1 mg Tablet
1 mg PO TID
rosuvastatin 40 mg Tablet
40 mg PO DAILY
Januvia 100 mg Tablet
100 mg PO DAILY
Jardiance 10 mg Tablet
10 mg PO DAILY
lisinopril-hydrochlorothiazide 10-12.5 mg Tablet
1 tab PO DAILY
Referrals:
Jesus Alvarez MD [Family Provider] -
Tru Castillo MD [Active] -
Activity Restrictions/Additional Instructions:
Stay hydrated. Please return here for any worsening symptoms. Recommend you do not drive until cleared to do so by cardiology.
Discharge Date and Time
Print Language: CITIZEN OF [place]
[2024-06-26 15:16] LABS: % Basophils 0.6 % (0-2); % Immature Granulocytes 0.5 % (0-0.5); % Lymphocytes 8.5 % (20.5-51.1); % Monocytes 8.9 % (1.7-9.3); % Neutrophils 79.5 % (42.2-75.2); Absolute Eosinophils 0.1 10^3/uL (0-0.7); Absolute Lymphocytes 0.6 10^3/uL (1.2-3.4); Absolute Monocytes 0.6 10^3/uL (0.1-0.6); Absolute Neutrophils 5.1 10^3/uL (1.4-6.5); Hematocrit 42.4 % (39.0-52.0); Hemoglobin 14.5 g/dL (13.0-18.0); Mean Corp Hgb Conc. 34.2 g/dL (33.0-37.0); Mean Corpuscular Hgb 31.5 pg (27.0-31.0); Mean Corpuscular Volume 92.2 fL (80.0-94.0); Mean Platelet Volume 9.3 fL (7.4-10.4); Nucleated Red Blood Cells % 0 % (-); Platelet Count 221 10^3/uL (130-400); Red Cell Dist. Width 12.3 % (11.5-14.5); White Blood Cell Count 6.4 10^3/uL (4.8-10.8)
[2024-06-26 15:27] LABS: ALT (SGPT) 21 U/L (0-50); AST (SGOT) 23 U/L (17-59); Albumin 4.4 g/dl (3.5-5.0); Alkaline Phosphatase 102 U/L (38-126); Blood Urea Nitrogen 19 mg/dl (9-20); Calcium 9.2 mg/dl (8.4-10.2); Carbon Dioxide 25 mmol/L (22-30); Chloride 103 mmol/L (98-107); Glucose 114 mg/dl (70-99); Potassium 4.4 mmol/L (3.5-5.1); Sodium 138 mmol/L (135-145); Total Bilirubin 0.5 mg/dl (0.2-1.3); Total Protein 7.1 g/dl (6.3-8.2); eGFR > 60.00
[2024-06-26 15:39] LABS: Troponin I < 0.012 ng/ml
[2024-06-26 17:11] VITALS: BP 142/72
== END 2024-06-26 19:31 | disposition home or self-care (01) ==
LOC: EMR 14:39
PROVIDERS: Physician Assistant; EMERGENCY PHYSICIAN Emergency Medicine; FAMILY PHYSICIAN Internal Medicine
DX: R55 Syncope and collapse (principal); I10 Essential (primary) hypertension; E78.00 Pure hypercholesterolemia, unspecified; E11.9 Type 2 diabetes mellitus without complications; W18.39XA Other fall on same level, initial encounter; Z90.49 Acquired absence of other specified parts of digestive tract; Z92.21 Personal history of antineoplastic chemotherapy; Z92.3 Personal history of irradiation; R42 Dizziness and giddiness
CPT/HCPCS: 99284; 70450; 80053; 84484; 85025; 93005

== ENCOUNTER 2024-06-28 12:01 | Inpatient (IN) | payer OTHER, SELFPAY ==
[2024-06-27] VITALS (17 sets, daily range): BP systolic 125–166; BP diastolic 65–108; PULSE 86–96; BMI 22.9; BMI 23.2
[2024-06-27 11:38] LABS: % Basophils 0.5 % (0-2); % Eosinophils 0.8 % (0-6); % Immature Granulocytes 0.3 % (0-0.5); % Lymphocytes 4.4 % (20.5-51.1); % Monocytes 6.6 % (1.7-9.3); % Neutrophils 87.4 % (42.2-75.2); Absolute Eosinophils 0.1 10^3/uL (0-0.7); Absolute Lymphocytes 0.3 10^3/uL (1.2-3.4); Absolute Monocytes 0.5 10^3/uL (0.1-0.6); Absolute Neutrophils 6.8 10^3/uL (1.4-6.5); Hematocrit 41.1 % (39.0-52.0); Hemoglobin 14.6 g/dL (13.0-18.0); Mean Corp Hgb Conc. 35.5 g/dL (33.0-37.0); Mean Corpuscular Hgb 32.1 pg (27.0-31.0); Mean Corpuscular Volume 90.3 fL (80.0-94.0); Mean Platelet Volume 9.6 fL (7.4-10.4); Nucleated Red Blood Cells % 0 % (-); Platelet Count 202 10^3/uL (130-400); Red Blood Cell Count 4.55 10^6/uL (4.70-6.10); Red Cell Dist. Width 12.3 % (11.5-14.5); White Blood Cell Count 7.7 10^3/uL (4.8-10.8)
--- NOTE | 2024-06-27 11:42 | ED.GENMED ---
History of Present Illness
General
Chief Complaint: Fainting/Passed Out
Source: patient and records
Time Seen by Provider: 06/27/24 11:17
History of Present Illness
History of Present Illness:
78-year-old male with past medical history of esophageal cancer (currently not undergoing any treatments), hypertension, hyperlipidemia, [id number] diabetes presenting back to the emergency department after being seen yesterday for
reevaluation due to having 2 more episodes of syncope today. Patient notes yesterday he had 2 episodes as well. He does report prodromal symptoms prior to syncopizing. Patient states he is asymptomatic now. Notes that he had a appointment
scheduled with cardiology, Dr. Lizarraga, for July 03 but believes this was due to an unrelated issue. Patient denies any headaches, visual changes, chest pain, shortness of breath, palpitations or any other concerns. Denies any use of
anticoagulants. He does note that he had eaten and drank prior to the syncope this morning.
Past History
Past History
ED Past Medical History: Cancer (esophageal s/p radiation and chemotherapy (01/2024)), HTN, Hypercholesterolemia and NIDDM
ED Past Surgical History: Appendectomy
Social History
Tobacco: Non-smoker
Alcohol: None
Drug: None
Personal:
Living: with family
Review of Systems
Review of Systems
All Other Systems: ROS reviewed and negative except as documented in HPI and ROS
Phy Exam
Physical Exam
Physical Exam:
GENERAL: Alert , in no apparent distress
HEAD: NCAT
EYE: conjunctiva clear
NECK: Supple
ENT: o/p clr, mmm.
CARDIAC: Regular rate and rhythm, faint systolic murmur LSB
LUNGS: Clear breath sounds bilaterally, no acute respiratory distress, no wheezes/rales/rhonchi
NEUROLOGICAL: Alert and oriented
SKIN: Warm and dry, skin intact.
MUSCULOSKELETAL: well perfused.
PSYCH: Normal and appropriate interaction.
Scores
Heart Failure Risk
Heart Failure Risk Score: Not Applicable
Heart Score for Chest Pain Patients
STEMI patient?: Not applicable
Withdrawal Assessment of Alcohol
Withdrawal Assessment Completed?: Not applicable
Course
Orders/Labs/Results
Orders:
Orders
06/27/24 Lunch
2200 calorie (18 carb) Diabetic
06/27/24 11:09
Electrocardiogram (*1) Urgent
Reason for Study: Syncope
EKG- Treatment ONCE
06/27/24 11:21
Orthostatic VS- Treatment ONCE
0.9% Sodium Chloride 1000 ml [Nss] 1,000 ml IV BOLUS
06/27/24 11:26
Complete Blood Count/With Diff Urgent
Comprehensive Metabolic Panel Urgent
Troponin I Urgent
06/27/24 13:25
Admit/Transfer Patient As Directed
Co-Sign Provider:
Level of Care: Observation services
Assign to:: Telemetry
Physician / Group: Dr. Saturnino Vasquez/Hospitalists
Diagnosis: Syncope, concern for seizures
Reason for Telemetry: Arrhythmia
Date to Stop Telemetry: 06/30/24
Time to Stop Telemetry: 11:00
06/27/24 13:27
Code Status As Directed
Resuscitation Status: Full Code
06/27/24 13:32
Precautions As Directed
Type of Precautions: Seizure
06/27/24 13:34
NEUROLOGY CONSULT Routine
Consulting Provider: Kira Valenzuela
Was physician already notified: Yes
Reason for consult: Syncope, provider history described as seizures
06/30/24 11:00
DC Protocol for Telemetry ONCE
Abnormal Lab Results
06/27/24
11:26
RBC 4.55 L 10^6/uL
(4.70-6.10)
MCH 32.1 H pg
(27.0-31.0)
Absolute Neuts (auto) 6.8 H 10^3/uL
(1.4-6.5)
Absolute Lymphs (auto) 0.3 L 10^3/uL
(1.2-3.4)
Neutrophils % 87.4 H %
(42.2-75.2)
Lymphocytes % 4.4 L %
(20.5-51.1)
Glucose 250 H mg/dl
(70-99)
06/27/24 11:26
06/27/24 11:26
Vital Signs
Initial and Last Documented VS:
Initial Vital Signs
Temp Pulse Resp BP Pulse Ox
98.8 F 105 18 135/72 94
06/27/24 11:03 06/27/24 11:03 06/27/24 11:03 06/27/24 11:03 06/27/24 11:03
Last Documented Vital Signs
Temp Pulse Resp BP Pulse Ox
98.8 F 98 21 147/68 96
06/27/24 11:03 06/27/24 12:00 06/27/24 12:00 06/27/24 12:00 06/27/24 12:00
MDM/Problems Addressed
Differential Diagnosis Includes:
cardiogenic syncope, vagal event, orthostasis, electrolyte derangement
MDM/Problems Addressed:
78-year-old male presenting back to the emergency department for 2 further syncopal episodes after being seen yesterday for 2 other episodes of syncope. Patient asymptomatic right now. Given his age combined with 4 separate syncopal episodes over
the last 48 hours patient needs to be admitted for further telemetry monitoring and cardiology consultation. Patient is asymptomatic right now and currently hemodynamically stable. Will repeat labs, orthostatics and continue on telemetry.
*Pulse Oximetry
Patient hypoxic: no
*EKG
Heart Rate: 101
Rate: tachycardiac
Rhythm: sinus
[place]: normal axis
*Critical Care Note
Total Time (30-74mins, 75-104mins- exclusive of procedures): Not Applicable
Data Reviewed
Review of Other/Old Records Reveals: Labs and Records
Patient Management
Discussion with other providers: Hospitalist
Escalation/DeEscalation of care consider admission/obs:
Hospitalist team accepts for continued evaluation and treatment.
ED Attending Note
-
Portions of this chart may have been created with voice recognition software.� Occasional wrong word or��sound alike� substitutions may have occurred due to the inherent limitations of voice recognition software.
Discharge Plan
Departure
Patient Disposition: Admit
Date of Disposition: 06/27/24
Time of Disposition: 11:43
Presentation/result/management discussed w/ accepting MD/DO: Hospitalist
Discharge Problem:
Syncope and collapse
Interventions
Interventions:
*Risk Screen - Suicide Last Done: 06/27/24 11:03
*General Assessment Last Done: 06/27/24 11:03
*Neglect/Abuse Screening Last Done: 06/27/24 11:03
ED- Cardiac Assessment Last Done: 06/27/24 11:08
ED- Neurological Assessment Last Done: 06/27/24 11:08
[2024-06-27 11:56] LABS: ALT (SGPT) 21 U/L (0-50); AST (SGOT) 22 U/L (17-59); Albumin 4.2 g/dl (3.5-5.0); Alkaline Phosphatase 108 U/L (38-126); Blood Urea Nitrogen 19 mg/dl (9-20); Calcium 8.9 mg/dl (8.4-10.2); Carbon Dioxide 22 mmol/L (22-30); Chloride 105 mmol/L (98-107); Estimated Creatinine Clearance 75 ml/min; Glucose 250 mg/dl (70-99); Potassium 4.4 mmol/L (3.5-5.1); Sodium 137 mmol/L (135-145); Total Bilirubin 0.5 mg/dl (0.2-1.3); Total Protein 6.7 g/dl (6.3-8.2); eGFR > 60.00
[2024-06-27] MEDS: NSS 1000 IV (11:59)
[2024-06-27 12:07] LABS: Troponin I < 0.012 ng/ml
--- NOTE | 2024-06-27 13:35 | HPS.HSE ---
Family Physician
-
Family Physician: Jesus Alvarez MD
Chief Complaint
-
Syncope, grunting and shaking, post-ictal confusion
History of Present Illness
78 y/o male with past medical history of esophageal cancer (last chemo/radiation was in February 2024; followed by software engineering supervisor Dr. 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 Patient's was present in the room and contributed to the history. Yesterday morning, patient's heard a
loud bang and found patient lying on the floor in the computer room, patient said he had no recollection of the event, but did remember prodromal symptoms including dizziness. Then, yesterday afternoon, patient was cleaning snow off of his car and
also had a similar episode, he was able to eventually get up and tell his that he passed out. He then came to the ER but refused to be admitted, CT head done at that time was unremarkable. Patient had a 3rd episode of seizure overnight when he
was sleeping, patient's said he was making, according to patient's 'Pig noises,' which sounded like grunting but not snoring noises, patient was not responding to her and was confused per her. Patient had an another similar episode where
he was grunting and also shaking. He also fell in the bathroom and also in the closet later, all times associated with confusion afterwards. He denied chest pain or SOB.
Medical History
Past Medical History
Past Medical History: Reports Other (As per HPI above)
Past Surgical History: Reports Appendectomy
Social History
Tobacco: Smoker
Alcohol: None
Drug: None
Family History
Family History: Not pertinent
Allergies / Home Medications
Allergies reflects when Allergies were last updated in [employer].
Home Medications with original date entered in [employer]
Allergy/Medication List:
Allergies
Allergy/AdvReac Type Severity Reaction Status Date / Time
No Known Allergies Allergy Verified 04/27/24 11:31
Home Medications
empagliflozin 10 mg tablet (Jardiance) 10 mg PO DAILY 11/19/23
repaglinide 1 mg tablet 1 mg PO TID 11/19/23
rosuvastatin 40 mg tablet 40 mg PO QPM 11/19/23
sitagliptin phosphate 100 mg tablet (Januvia) 100 mg PO DAILY 11/19/23
lisinopril 10 mg-hydrochlorothiazide 12.5 mg tablet 1 tab PO QPM 04/27/24
acetaminophen 325 mg tablet (Tylenol) 650 mg PO DAILYPRN PRN mild pain 06/27/24
aspirin 325 mg tablet 325 mg PO DAILYPRN PRN chest pains 06/27/24
metformin 500 mg tablet,extended release 24 hr 500 mg PO DAILY 06/27/24
pantoprazole 40 mg tablet,delayed release (Protonix) 40 mg PO DAILY 06/27/24
Review of Systems
-
A 12 point ROS was completed and negative except as noted: Yes
Physical Exam
Vital Signs
Vital Signs
Temp Pulse Resp BP Pulse Ox
98.8 F 98 21 147/68 96
06/27/24 11:03 06/27/24 12:00 06/27/24 12:00 06/27/24 12:00 06/27/24 12:00
Physical Exam
General: No Apparent Distress, Comfortable and Conversant
HEENT: NormoCephalic and Moist mucous membranes
Respiratory: Clear
Cardiac: S1/S2 and Regular Rhythm
GI: Soft, Non Tender and Normal Bowel Sounds
Musculoskeletal: No Cyanosis and No Edema
Skin: Warm and Dry
Neuro: Awake, Alert, AO x 3, No Motor Deficits, Nonfocal/grossly intact, Cranial Nerves Intact and No Sensory Deficits
Psych: Calm and Intact Judgment/Insight
Laboratory Results
-
06/27/24 11:26
06/27/24 11:
Laboratory Results
Total Bilirubin 0.5 mg/dl (0.2-1.3) 06/27/24 11:26
AST 22 U/L (17-59) 06/27/24 11:26
ALT 21 U/L (0-50) 06/27/24 11:26
Alkaline Phosphatase 108 U/L (38-126) 06/27/24 11:
Troponin I < 0.012 ng/ml 06/27/24 11:26
Impression/Plan
-
Assessment/Plan
Multiple Episodes of Syncope in the 24 to 30 Hours Prior to Arrival, at least some witnessed with shaking, LOC, grunting noises and post-ictal confusion
-Seizure precautions
-Neurochecks
-Orthostatic vital signs
-Patient did have prodromal symptoms suggesting possible component of vasovagal
-Has history of 'some damage to the bottom of his heart' (found in the )
-Monitor on telemetry
-Echocardiogram
-No obvious reversible cause yet
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
-Neurology consultation
-Patient was supposed to see Dr. Jimenez (lithographic plate maker) outpatient --> outpatient follow-up with cardio on discharge
Esophageal cancer (last chemo/radiation was in February 2024; followed by software engineering supervisor Dr. Clayton)
-Follow-up with Dr. Clayton
Diabetes Mellitus
-Continue most home meds
-Monitor glucose
'Some damage to the bottom of heart' (found in the )
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
DVT Prophylaxis: Lovenox
Code Status: Full Code
--- NOTE | 2024-06-27 16:32 | CON.NEURO ---
Consultation
Order
Date of Consultation: 06/27/24
Requesting Provider: Saturnino Vasquez MD
Reason for Consult: Recurrent spells
Neurology Consultation Note.
HPI: This is a 78-year-old man who presented to [facility] on 06/26/2024 with recurrent spells.
The patient endorses 4-5 spells presenting with loss of consciousness and falls over the last 2 days. He reports experiencing dizziness, described as a spinning sensation, prior to his vision 'going black' and losing consciousness. He estimates the
duration of each episode to be approximately 30 seconds to one minute, after which he regains consciousness without confusion. The patient denies any tongue biting, urinary incontinence, or significant head trauma during these episodes.
Based on EMR patient did have confusion following some of the spells.
ER VS: 142/72, 86, afebrile
EKG: Sinus tachycardia at 101, QTc Int : 446 ms
Labs: Glucose�114, normal sodium, WBCs, platelets, bilirubin, creatinine�1.2,
CT head wo contrast- mild diffuse cortical and cerebellar atrophy
Routine EEG (06/27/2024)�normal
PMH: invasive esophageal adenocarcinoma(s/p RT, chemo), Mayfield's esophagus. DLP, DM, GERD, BPH
PSH: appendectomy,
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
FH: Sister melanoma
All:NKDA
ROS: Positive for weight loss following chemotherapy
HENT: Negative for ear pain, hearing loss, tinnitus and trouble swallowing.
Eyes: Negative. Negative for photophobia, pain and visual disturbance.
Respiratory: Negative for cough, choking and shortness of breath.
Cardiovascular: Negative for chest pain, palpitations and leg swelling.
Gastrointestinal: Positive for dysphagia
Endocrine: Negative. Negative for cold intolerance.
Genitourinary: Negative for dysuria, flank pain and urgency.
Musculoskeletal: Positive for intermittent left knee instability
Skin: Negative for rash.
Allergic/Immunologic: Negative. Negative for immunocompromised state.
Neurological: Positive for recurrent spells
Psychiatric/Behavioral: Negative for behavioral problems, confusion and hallucinations.
General: Well developed. In no acute distress.
Cardio: Regular rate and rhythm without murmur. Extremities are without cyanosis or edema.
Neuro:
Mental Status: Alert, oriented to person, place, and date. Normal attention and recall. Good fund of knowledge. Follows complex requests across the midline. Comprehension, naming, and repetition intact. Immediate and delayed recall 3/3.
Cranial Nerves: . Pupils are equally round and reactive to light. EOMs full. Visual nunes full to confrontation. No ptosis. No nystagmus. V1-V3 intact to light touch and pinprick bilaterally, symmetric. Face symmetric. Mildly impaired
hearing AU. The palate elevated well. SCMs and traps 5/5. Tongue midline. No dysarthria.
Motor: Normal bulk and tone. No pronator or arm drift. Strength 5/5 throughout. No clonus.
Reflexes: Negative grasp bilaterally
Sensory: Normal proprioception at the toes
Coordination: Mild action hand tremor.
Gait: deferred
Assessment and Plan:
I. Recurrent spells (syncope vs seizures)
II. History of invasive esophageal adenocarcinoma
III. HTN
-Fall and seizure precautions
-No driving for 6-month
-Cardiology consult
-Brain MRI without mani after obtaining x-rays of her upper extremities
-Will contact patient's spouse to obtain collateral history
-Please check TFTs, magnesium, urine tox
I personally reviewed all radiology and labs along with past medical records pertinent to current medical problems. Total time spent in patient care is 63 minutes.
Thank you for allowing us to participate in the care of this patient. We will continue to follow. Please do not hesitate to contact us with any questions or concerns.
Subjective/Objective
Subjective Data
Date of Service: June 27, 2024
Objective Data
Vital Signs
Temp Pulse Resp BP Pulse Ox
37.1 C 98 21 147/68 96
06/27/24 11:03 06/27/24 12:00 06/27/24 12:00 06/27/24 12:00 06/27/24 12:00
Lab Results
06/27/24 11:26
06/27/24 11:26
Sodium 137 mmol/L (135-145) 06/27/24 11:26
Potassium 4.4 mmol/L (3.5-5.1) 06/27/24 11:26
BUN 19 mg/dl (9-20) 06/27/24 11:26
Glucose 250 mg/dl (70-99) H 06/27/24 11:26
Calcium 8.9 mg/dl (8.4-10.2) 06/27/24 11:26
Patient Allergies
No Known Allergies Allergy (Verified 04/27/24 11:31)
Medications
-
Home Medications
�Medication �Instructions �Recorded
empagliflozin 10 mg tablet 10 mg PO DAILY 11/19/23
(Jardiance)
repaglinide 1 mg tablet 1 mg PO TID 11/19/23
rosuvastatin 40 mg tablet 40 mg PO QPM 11/19/23
sitagliptin phosphate 100 mg 100 mg PO DAILY 11/19/23
tablet (Januvia)
lisinopril 10 1 tab PO QPM 04/27/24
mg-hydrochlorothiazide 12.5 mg
tablet
acetaminophen 325 mg tablet 650 mg PO DAILYPRN PRN mild pain 06/27/24
(Tylenol)
aspirin 325 mg tablet 325 mg PO DAILYPRN PRN chest pains 06/27/24
metformin 500 mg tablet,extended 500 mg PO DAILY 06/27/24
release 24 hr
pantoprazole 40 mg tablet,delayed 40 mg PO DAILY 06/27/24
release (Protonix)
Vital Signs and Labs
-
Vital Signs and Labs:
Vital Signs
Temp Pulse Resp BP Pulse Ox
37.1 C 80 19 141/69 94
06/27/24 11:03 06/27/24 17:45 06/27/24 17:45 06/27/24 17:00 06/27/24 17:45
Lab Results
06/27/24 11:26
06/27/24 11:26
Sodium 137 mmol/L (135-145) 06/27/24 11:26
Potassium 4.4 mmol/L (3.5-5.1) 06/27/24 11:26
BUN 19 mg/dl (9-20) 06/27/24 11:26
Glucose 250 mg/dl (70-99) H 06/27/24 11:26
Calcium 8.9 mg/dl (8.4-10.2) 06/27/24 11:26
Home Medications
-
Home Medications
empagliflozin 10 mg tablet (Jardiance) 10 mg PO DAILY 11/19/23
repaglinide 1 mg tablet 1 mg PO TID 11/19/23
rosuvastatin 40 mg tablet 40 mg PO QPM 11/19/23
sitagliptin phosphate 100 mg tablet (Januvia) 100 mg PO DAILY 11/19/23
lisinopril 10 mg-hydrochlorothiazide 12.5 mg tablet 1 tab PO QPM 04/27/24
acetaminophen 325 mg tablet (Tylenol) 650 mg PO DAILYPRN PRN mild pain 06/27/24
aspirin 325 mg tablet 325 mg PO DAILYPRN PRN chest pains 06/27/24
metformin 500 mg tablet,extended release 24 hr 500 mg PO DAILY 06/27/24
pantoprazole 40 mg tablet,delayed release (Protonix) 40 mg PO DAILY 06/27/24
--- NOTE | 2024-06-27 19:01 | EEGC.RPT ---
Continuous EEG Report
Recording
Start Date of Data Reviewed: 06/27/24
Done with Video Recording: Yes
Electrocardiogram: Unremarkable
Report
TECHNICAL REMARKS: This is a technically satisfactory eighteen channel record employing 21 disc electrodes applied according to a measured international 10-20 electrode placement system. There were no significant technical difficulties. The study
was done on a [email or web address] System.
CLINICAL HISTORY: This is a 78-year-old man with recurrent spells of loss of consciousness. This study was requested to look for epileptiform abnormalities.
MEDICATION: no AED
STUDY DURATION: 26 min, 15 secs
REPORT: At the onset of the EEG, the patient is awake. The background activity consists of 11-11.5 Hz, persistent, posteriorly dominant, moderate amplitude, symmetric and rhythmic activity that is reactive to eye-opening. Anteriorly, it consists of
a mixture of low voltage indeterminate activity and 20-25 Hz, persistent, low amplitude, symmetric and rhythmic activity. Stepwise intermittent photic stimulation (1-31 Hz) does not induce any abnormalities. Hyperventilation was not performed.
Drowsiness is characterized by low amplitude mixed frequency activity, decreased eye blinking, and muscle artifact.
IMPRESSION: This is a normal awake and drowsy EEG. There is no evidence of focal slowing or epileptiform activity. A normal EEG does not rule out epilepsy. If the clinical picture warrants, a sleep-deprived awake and sleep record may be helpful.
--- NOTE | 2024-06-27 20:44 | PTCARENOTE ---
pt arrived on unit. VS WNL. placed on tele. call [facility] within reach. will continue to monitor
[2024-06-27] MEDS: LOVENOX 40 MG SC (22:04)
[2024-06-27] MEDS: ZESTRIL 10 MG PO (22:04)
[2024-06-27] MEDS: ORETIC 12.5 MG PO (22:04)
[2024-06-27] MEDS: CRESTOR 40 MG PO (22:05)
[2024-06-28] VITALS (23 sets, daily range): BP systolic 98–155; BP diastolic 58–83; BMI 23.2; BMI 22.6
[2024-06-28 04:19] LABS: Vitamin B12 313 pg/ml (239-931)
[2024-06-28 06:21] LABS: Hematocrit 39.7 % (39.0-52.0); Hemoglobin 13.6 g/dL (13.0-18.0); Mean Corp Hgb Conc. 34.3 g/dL (33.0-37.0); Mean Corpuscular Hgb 31.3 pg (27.0-31.0); Mean Corpuscular Volume 91.3 fL (80.0-94.0); Mean Platelet Volume 10.1 fL (7.4-10.4); Platelet Count 195 10^3/uL (130-400); Red Blood Cell Count 4.35 10^6/uL (4.70-6.10); Red Cell Dist. Width 12.1 % (11.5-14.5); White Blood Cell Count 6.8 10^3/uL (4.8-10.8)
[2024-06-28 06:44] LABS: Blood Urea Nitrogen 15 mg/dl (9-20); Calcium 9.1 mg/dl (8.4-10.2); Carbon Dioxide 21 mmol/L (22-30); Chloride 105 mmol/L (98-107); Estimated Creatinine Clearance 86 ml/min; Glucose 128 mg/dl (70-99); Magnesium 1.9 mg/dl (1.6-2.3); Sodium 134 mmol/L (135-145); eGFR > 60.00
[2024-06-28] MEDS: JANUVIA 100 MG PO (08:43)
[2024-06-28] MEDS: PRANDIN 1 MG PO ×2 (08:43→18:14)
[2024-06-28] MEDS: PROTONIX 40 MG PO (08:43)
[2024-06-28] MEDS: FARXIGA 10 MG PO (08:43)
[2024-06-28 11:00] LABS: Glucose - Point of Care 151 mg/dl (70-99)
--- NOTE | 2024-06-28 11:09 | W.PN.NEURO.1 ---
Today's Communication / Plan
-
.
Subjective/Objective
Subjective Data
Date of Service: June 28, 2024
Neurology follow-up note.
24-hour events: 17-seconds pause on tele with associated syncope.
Routine EEG (06/27/2024)�normal
Vit b12 313.
PMH: invasive esophageal adenocarcinoma(s/p RT, chemo), Mayfield's esophagus. DLP, DM, GERD, BPH
PSH: appendectomy,
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
FH: Sister melanoma
All:NKDA
ROS: Positive for weight loss following chemotherapy
HENT: Negative for ear pain, hearing loss, tinnitus and trouble swallowing.
Eyes: Negative. Negative for photophobia, pain and visual disturbance.
Respiratory: Negative for cough, choking and shortness of breath.
Cardiovascular: Negative for chest pain, palpitations and leg swelling.
Gastrointestinal: Positive for dysphagia
Endocrine: Negative. Negative for cold intolerance.
Genitourinary: Negative for dysuria, flank pain and urgency.
Musculoskeletal: Positive for intermittent left knee instability
Skin: Negative for rash.
Allergic/Immunologic: Negative. Negative for immunocompromised state.
Neurological: Positive for recurrent spells
Psychiatric/Behavioral: Negative for behavioral problems, confusion and hallucinations.
General: Well developed. In no acute distress.
Cardio: Regular rate and rhythm without murmur. Extremities are without cyanosis or edema.
Neuro:
Mental Status: Alert, oriented to person, place, and date. Normal attention and recall. Good fund of knowledge. Follows complex requests across the midline. Comprehension, naming, and repetition intact. Immediate and delayed recall 3/3.
Cranial Nerves: . Pupils are equally round and reactive to light. EOMs full. Visual nunes full to confrontation. No ptosis. No nystagmus. V1-V3 intact to light touch and pinprick bilaterally, symmetric. Face symmetric. Mildly impaired
hearing AU. The palate elevated well. SCMs and traps 5/5. Tongue midline. No dysarthria.
Motor: Normal bulk and tone. No pronator or arm drift. Strength 5/5 throughout. No clonus.
Reflexes: Negative grasp bilaterally
Sensory: Reduced vibration at the toes and ankles
Coordination: Mild action hand tremor.
Gait: deferred
Assessment and Plan:
I. SSS
II. Distal symmetric polyneuropathy
III. HTN
-No driving for 6-months
-Cardiology consult
-Outpatient neurology follow-up
-Please recall neurology services with any questions
I personally reviewed all radiology and labs along with past medical records pertinent to current medical problems. Total time spent in patient care is 35 minutes.
Thank you for allowing us to participate in the care of this patient. Please do not hesitate to contact us with any questions or concerns.
Objective Data
Vital Signs
Temp Pulse Resp BP Pulse Ox
36.9 C 88 16 116/64 96
06/28/24 07:42 06/28/24 07:42 06/28/24 07:42 06/28/24 07:42 06/28/24 07:42
Lab Results
06/28/24 05:27
06/28/24 05:27
Sodium 134 mmol/L (135-145) L 06/28/24 05:27
Potassium 4.0 mmol/L (3.5-5.1) 06/28/24 05:27
BUN 15 mg/dl (9-20) 06/28/24 05:27
Glucose 128 mg/dl (70-99) H 06/28/24 05:27
Calcium 9.1 mg/dl (8.4-10.2) 06/28/24 05:27
Vitamin B12 Cancelled 06/27/24 20:34
Patient Allergies
No Known Allergies Allergy (Verified 04/27/24 11:31)
Vital Signs and Labs
-
Vital Signs and Labs:
Vital Signs
Temp Pulse Resp BP Pulse Ox
36.9 C 88 16 116/64 96
06/28/24 07:42 06/28/24 07:42 06/28/24 07:42 06/28/24 07:42 06/28/24 07:42
Sodium 134 mmol/L (135-145) L 06/28/24 05:27
Potassium 4.0 mmol/L (3.5-5.1) 06/28/24 05:27
BUN 15 mg/dl (9-20) 06/28/24 05:27
Glucose 128 mg/dl (70-99) H 06/28/24 05:27
Calcium 9.1 mg/dl (8.4-10.2) 06/28/24 05:27
Vitamin B12 Cancelled 06/27/24 20:34
Medications
-
Medications:
Generic Name Dose Route Start Last Admin
Trade Name Freq PRN Reason Stop Dose Admin
Acetaminophen 650 mg 06/27/24 20:34
Acetaminophen 325 Mg Tablet PO 07/25/24 20:33
DAILYPRN PRN
mild pain
Aspirin 325 mg 06/27/24 20:34
Aspirin 325 Mg Tablet PO 07/25/24 20:33
DAILYPRN PRN
chest pains
Bisacodyl 10 mg 06/27/24 20:34
Bisacodyl 10 Mg Rectal Suppository RECTAL 07/25/24 20:33
[id number] PRN
constipation
Dapagliflozin 10 mg 06/28/24 08:00 06/28/24 08:43
Dapagliflozin (Farxiga) 10 Mg Tablet PO 07/26/24 07:59 10 mg
DAILY ROBERTO Administration
Enoxaparin Sodium 40 mg 06/27/24 20:34 06/27/24 22:04
Enoxaparin Sodium 40 Mg/0.4 Ml Syringe SC 07/25/24 20:33 40 mg
QPM ROBERTO Administration
Hydrochlorothiazide 12.5 mg 06/27/24 20:00 06/27/24 22:04
Hydrochlorothiazide 12.5 Mg Tablet PO 07/25/24 19:59 12.5 mg
QPM ROBERTO Administration
Lisinopril 10 mg 06/27/24 20:00 06/27/24 22:04
Lisinopril 10 Mg Tablet PO 07/25/24 19:59 10 mg
QPM ROBERTO Administration
Pantoprazole Sodium 40 mg 06/28/24 08:00 06/28/24 08:43
Pantoprazole 40 Mg Delayed Release Tablet PO 07/26/24 07:59 40 mg
DAILY ROBERTO Administration
Polyethylene Glycol 17 grams 06/27/24 20:34
Polyethylene Glycol Powder 17 Grams Packet PO 07/25/24 20:33
DAILYPRN PRN
constipation
Repaglinide 1 mg 06/28/24 08:00 06/28/24 08:43
Repaglinide 1 Mg Tablet PO 07/26/24 07:59 1 mg
MEALS ROBERTO Administration
Rosuvastatin Calcium 40 mg 06/27/24 20:34 06/27/24 22:05
Rosuvastatin (Crestor) 40 Mg Tablet PO 07/25/24 20:33 40 mg
QPM ROBERTO Administration
Senna/Docusate Sodium 1 tablet 06/27/24 20:34
Docusate W/Senna (Cindy-Colace) Tablet PO 07/25/24 20:33
BIDPRN PRN
constipation
Sitagliptin Phosphate 100 mg 06/28/24 08:00 06/28/24 08:43
Sitagliptin (Januvia) 100 Mg Tablet PO 07/26/24 07:59 100 mg
DAILY ROBERTO Administration
Sodium Chloride 0 flush 06/27/24 21:00
Sodium Chloride 0.9% (Flush) Syringe IV 07/25/24 20:59
PER PROTOCOL ROBERTO
Home Medications
-
Home Medications
empagliflozin 10 mg tablet (Jardiance) 10 mg PO DAILY Diabetes 11/19/23
repaglinide 1 mg tablet 1 mg PO TID Diabetes 11/19/23
rosuvastatin 40 mg tablet 40 mg PO QPM High Cholesterol 11/19/23
sitagliptin phosphate 100 mg tablet (Januvia) 100 mg PO DAILY Diabetes 11/19/23
lisinopril 10 mg-hydrochlorothiazide 12.5 mg tablet 1 tab PO QPM Blood Pressure 04/27/24
acetaminophen 325 mg tablet (Tylenol) 650 mg PO DAILYPRN PRN mild pain 06/27/24
aspirin 325 mg tablet 325 mg PO DAILYPRN PRN chest pain 06/27/24
metformin 500 mg tablet,extended release 24 hr 500 mg PO DAILY Diabetes 06/27/24
pantoprazole 40 mg tablet,delayed release (Protonix) 40 mg PO DAILY Gastrointestinal Issue 06/27/24
--- NOTE | 2024-06-28 11:10 | W.PN.HOSP.TC ---
Today's Communication/Plan
-
SOCKET PULLER called, I was present during the rapid and saw and examined the patient
Patient had ~18 second pause associated with loss of consciousness, afterwards, he came back to baselines with
Place pacer pads in case patient needs it
Transfer to IVU/ICU
Assessment / Plan
Assessment / Plan
Physical Exam
General: No Apparent Distress, Comfortable and Conversant
HEENT: Normocephalic and Moist mucous membranes
Respiratory: Clear
Cardiac: S1/S2 and Regular Rhythm
GI: Soft, Non Tender and Normal Bowel Sounds
Musculoskeletal: No Cyanosis and No Edema
Skin: Warm and Dry
Neuro: Awake, Alert, AO x 3, No Motor Deficits, Nonfocal/grossly intact, Cranial Nerves Intact and No Sensory Deficits
Psych: Calm and Intact Judgment/Insight
Assessment/Plan
Significant Symptomatic Pause on June 28, 2024
-SOCKET PULLER was called; I saw and examined the patient during the rapid response
-Patient passed out for a brief period of time during this event; after the episode, patient's mental status was back at baseline, tele with sinus rhythm in the 90s, systolic blood pressure 155 mmHg
-Transfer to ICU/IVU
-EKG, troponins, CBC, CMP, ABG
-Echocardiogram
-Cardiology consulted
Multiple Episodes of Syncope in the 24 to 30 Hours Prior to Arrival, at least some witnessed with shaking, LOC, grunting noises and post-ictal confusion
Above syncopal episodes suspected secondary to Episodes of Bradycardia and Pauses -- which can cause seizure symptoms
-Seizure precautions
-Neurochecks
-Orthostatic vital signs
-Patient did have prodromal symptoms suggesting possible component of vasovagal
-Has history of 'some damage to the bottom of his heart' (found in the 1980s)
-Monitor on telemetry
-Echo as above
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
-Neurology consultation appreciated
Esophageal cancer (last chemo/radiation was in February 2024; followed by business leader Dr. Clayton)
-Follow-up with Dr. Clayton
Diabetes Mellitus
-Continue most home meds
-Monitor glucose
'Some damage to the bottom of heart' (found in the )
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
DVT Prophylaxis: Lovenox
Code Status: Full Code
Rapid Response today with ~18-second pause on telemetry is a high risk encounter.
Anticipated Discharge: > 48 hours
Subjective/Interval History
-
Date of Service: June 28, 2024
Patient was seen and examined. Earlier this morning, he was doing okay but later in the morning he passed out, associated with a ~18 second pause.
Objective Data
-
Labs:
Laboratory Results
06/28/24
05:27
WBC 6.8
Hgb 13.6
Hct 39.7
Plt Count 195
Sodium 134 L
Potassium 4.0
Chloride 105
Carbon Dioxide 21 L
BUN 15
Creatinine 0.7
Glucose 128 H
Calcium 9.1
Vital Signs:
Vital Signs
Temp Pulse Resp BP Pulse Ox
98.4 F 88 16 116/64 96
06/28/24 07:42 06/28/24 07:42 06/28/24 07:42 06/28/24 07:42 06/28/24 07:42
I&O
06/27/24 06/28/24 06/29/24
06:59 06:59 06:59
Intake Total 480 / 480
Balance 480 / 480
--- NOTE | 2024-06-28 11:40 | CON.CAR ---
Addendum entered and electronically signed by Óscar Robledo MD 06/28/24 12:45:
I saw and examined the patient.
The Math Coach's note was reviewed and I agree with the note.
Comment:
GEN: No distress, awake, Ox3
HEENT: supple, anicteric, mmm
LUNGS: CTA, no wheezes/rales
CV: Reg, S1/S2, 1/6 syst LSB, no gallop
ABD: soft, BS+, NT/ND
EXT: No edema
NEURO: Gross non-focal
SKIN: No rash
Plan:
78-year-old male with past medical history of esophageal cancer status postchemotherapy and radiation, diabetes, hypertension, hyperlipidemia, tobacco abuse presents with recurrent syncope. He has had 4 episodes of syncope over the past 48 hours.
Today while hospitalized he had cardiac standstill with a 17-second pause. His heart rate recovered and he currently is awake and in sinus rhythm.
Troponin was negative upon arrival. ECG with sinus rhythm with inferior infarct age indeterminant and nonspecific ST abnormalities.
Patient presents with a 17-second pause in cardiac standstill status arrested. Keep atropine at the bedside.
He is on no AV phan blockers and we will proceed with semiurgent pacemaker today.
Check echocardiogram and TSH.
Will need eventual ischemic evaluation.
Original Note:
Consultation
Consultation Request
Date/Time Consultation Performed: 06/28/24
Requesting Provider: Dr. Vasquez
Performing Provider: Lorrie Hackett PA-C for Dr. Robledo
Reason for Consultation: aborted cardiac arrest
Medical History
-
Chief Complaint: recurrent syncope
History of Present Illness:
Patient is a 78-year-old male with past medical history of esophageal cancer status post chemotherapy completed in March 2024 and radiation completed in February 2024, GERD, qiw-kveadtc-xebfebezl diabetes, ongoing tobacco use who presented to
[facility] for evaluation of recurrent syncopal events. He reports over the last 48 hours he has had 4 syncopal events. The first he reports was with pushing snow off of his car, the second was while he was putting on his belt. The
third he reports was while sleeping his noted he was snoring differently than normal and had trouble waking him up. The fourth he believes was while he was combing his hair. He reports prodrome of feeling hot and shaky. He denies history of
Lyme disease or thyroid issues to his knowledge. He is adopted so is unaware of his family history. He denies alcohol use. He denies significant confusion surrounding syncopal events and denies history of seizures or syncope in the past. He had
additional syncopal episode approximately an hour ago with 17-second pause with syncope resulting in urgent cardiology consultation. Currently feeling well without issues
PMH:
Esophageal cancer status post chemotherapy and radiation
GERD
Xot-cpmksfc-ppjhhgbtt diabetes
Ongoing tobacco use
Past Medical History
Past Medical History: Other (in HPI)
Social History
Tobacco: Smoker
Alcohol: None
Personal:
Living: With Family
Employment: Retired
Family History
Family History: Unable to Obtain (adopted)
Allergies / Home Medications
Allergy/AdvReac Type Severity Reaction Status Date / Time
No Known Allergies Allergy Verified 04/27/24 11:31
�Medication �Instructions �Recorded �Confirmed �Type
empagliflozin 10 mg tablet 10 mg PO DAILY Diabetes 11/19/23 06/27/24 History
(Jardiance)
repaglinide 1 mg tablet 1 mg PO TID Diabetes 11/19/23 06/27/24 History
rosuvastatin 40 mg tablet 40 mg PO QPM High Cholesterol 11/19/23 06/27/24 History
sitagliptin phosphate 100 mg 100 mg PO DAILY Diabetes 11/19/23 06/27/24 History
tablet (Januvia)
lisinopril 10 1 tab PO QPM Blood Pressure 04/27/24 06/27/24 History
mg-hydrochlorothiazide 12.5 mg
tablet
acetaminophen 325 mg tablet 650 mg PO DAILYPRN PRN mild pain 06/27/24 06/27/24 History
(Tylenol)
aspirin 325 mg tablet 325 mg PO DAILYPRN PRN chest pain 06/27/24 06/27/24 History
metformin 500 mg tablet,extended 500 mg PO DAILY Diabetes 06/27/24 06/27/24 History
release 24 hr
pantoprazole 40 mg tablet,delayed 40 mg PO DAILY Gastrointestinal 06/27/24 06/27/24 History
release (Protonix) Issue
Review of Systems
-
History Source: Patient
All other systems: Negative unless noted
Physical Exam
Vital Signs
Temp Pulse Resp BP Pulse Ox
97.9 F 92 18 155/83 96
06/28/24 11:37 06/28/24 11:37 06/28/24 11:37 06/28/24 11:37 06/28/24 11:37
Lab Results
Troponin I < 0.012 ng/ml 06/27/24 11:26
Physical Exam
General: No Apparent Distress and Comfortable
HEENT: Normocephalic, Anicteric and Moist Mucous Membranes
Respiratory: Clear and Non Labored Respirations
Cardiac: S1/S2 and Regular Rhythm
GI: Soft, Non Tender, Non Distended and Normal Bowel Sounds
Musculoskeletal: No Clubbing, No Cyanosis and No Edema
Skin: Warm, Dry and Other (Left-sided chest port)
Neuro: AO x 3
Impression / Plan
-
Primary offset press assistant: None prior to admission
Assessment:
Recurrent syncopal events
Aborted cardiac arrest/17-second pause with syncope
Negative troponin x 1
Hyponatremia, mild
Esophageal cancer status post chemotherapy and radiation
GERD
Axp-gsvzozy-kofayvvgf diabetes
Ongoing tobacco use
ECHO 06/28/24: pending
Plan:
-Patient presented with recurrent syncopal events. Head CT without acute abnormalities. Today was noted to have syncopal event associated with cardiac arrest/17-second pause with spontaneous return of circulation
-Consulted to see patient urgently given event of above
-Currently at baseline mental status. No complaints
-Back in sinus rhythm on review of telemetry
-Pads on patient
-For transfer to ICU/IVU pending bed availability
-TSH pending
-Repeat troponin pending
-Check urgent echocardiogram
-N.p.o. for pacemaker later today. Discussed procedure with patient and at bedside, agreeable to proceed. Of note patient has left sided chest port, device will need to be right-sided. Patient is right-handed
-Will follow
Data Reviewed
-
EKG: Tracing Personally Visualized and interpreted
CT Scan: Report Reviewed by me
Labs: Labs Reviewed by me
Old Records: Reviewed
[2024-06-28 11:41] LABS: B.E. -2.3 mmol/L; HCO3 21.4 mmol/L (21-28); O2 Saturation % 98.9 % (94-98); PCO2 33 mmHg (35-48); PO2 82 mmHg (83-108); pH 7.42 (7.35-7.45)
[2024-06-28 11:41] LABS: Hemoglobin 14.5 g/dL (13.0-18.0); Mean Corp Hgb Conc. 35.4 g/dL (33.0-37.0); Mean Corpuscular Volume 90.5 fL (80.0-94.0); Mean Platelet Volume 9.5 fL (7.4-10.4); Platelet Count 216 10^3/uL (130-400); Red Blood Cell Count 4.53 10^6/uL (4.70-6.10); Red Cell Dist. Width 12.2 % (11.5-14.5); White Blood Cell Count 7.2 10^3/uL (4.8-10.8)
--- NOTE | 2024-06-28 11:51 | W.PN.UPDATE ---
Update Note
Progress Note Update
Met with patient and at the bedside along with rounding team. Reviewed telemetry and discussed with hospitalist. 5-6 episodes of abrupt and profound syncope over the last 48 hours. He has a left-sided port in place. Reviewed his telemetry
which demonstrated a 16.8-second pause preceded by a PAC which reset the sinus node and induced antegrade AV block with abrupt recovery and return of consciousness. This episode in the hospital was consistent with prior recent episodes of syncope
with minimal prodrome. Reviewed the findings with hospitalist and cardiology rounding team. Currently he is sinus rhythm in the 80s to 90s beats per minute. He does have Q waves in 2 3 and aVF which the patient told me he was told also he had an
ECG in 1984. He ate breakfast at 10 AM although it was a light breakfast. He has been placed on pacing pads and brought towards the ICU in the interim.
Had a preliminary discussion with patient and regarding pacemaker implant via the right deltopectoral groove with a 1 of thousand risk of NC stroke and a 1% risk of pneumothorax tamponade infection or bleeding. I took time to answer all
questions and the patient understands and agrees to procedure. We will perform an echocardiogram directly to assess ejection fraction prior to device implant and I asked primary team to place temporary pacing pads on the patient in case he needs
pacing.
[2024-06-28 11:52] LABS: PT 13.7 Sec (11.4-14.6)
--- NOTE | 2024-06-28 11:52 | RR ---
A Rapid Response was called on this patient, please see Rapid Response form.
Pt. monitoring analyst alarming for asystole, this RN immediately went to pt bedside. Pt. states he had 'blacked out' and felt dizzy and hot. Pt was awake, alert, and oriented when this RN came in. This RN called [facility]ASS BUFFER. Pt here for syncopal episodes at
home. Pt. determined to have had 18 second pause. Pt transferred to ICU.
[2024-06-28 11:53] LABS: APTT 29.4 Sec (23.4-35.0)
[2024-06-28 11:59] LABS: ALT (SGPT) 20 U/L (0-50); AST (SGOT) 23 U/L (17-59); Albumin 4.3 g/dl (3.5-5.0); Alkaline Phosphatase 105 U/L (38-126); Blood Urea Nitrogen 14 mg/dl (9-20); Calcium 9.3 mg/dl (8.4-10.2); Carbon Dioxide 21 mmol/L (22-30); Chloride 102 mmol/L (98-107); Estimated Creatinine Clearance 86 ml/min; Glucose 145 mg/dl (70-99); Potassium 4.1 mmol/L (3.5-5.1); Sodium 136 mmol/L (135-145); Total Protein 7.1 g/dl (6.3-8.2); eGFR > 60.00
--- NOTE | 2024-06-28 11:59 | CM ---
Addendum entered by Marisela Tobias 06/28/24 12:44:
physician aware of OBS admission status and indicated that he would change to INP.
Original Note:
Patient seen earlier at bedside. Patient stated that he lives with his . PCP is Dr. Alvarez and he does not have any DME at home. Patient Pharmacy is [facility] and he has been independent and driving prior to admission. CM called to patient
to confirm living arrangements; per patient 2 story home, VM left via phone. Patient in process of transfer to ICU at this time. CM will continue to follow for discharge planning needs.
Plan; tbd; pending medical treatment plan
[2024-06-28 12:09] LABS: Troponin I < 0.012 ng/ml
--- NOTE | 2024-06-28 12:30 | PTCARENOTE ---
Pt changed from observation to inpatient IVU status following a rapid response on the floor. IVU overflow in ICU. Pt had 17 seconds of a pause with associated syncope. AAOx3. Denying pain. SaO2 97% on room air. Sinus rhythm on nurse monitoring. HR
70s - 80s. No edema. NPO. Pt for pacemaker placement this afternoon. (R) FA #20 and (L) AC #20. Left chest wall SubQ port accessed but no blood return. Cath flow ordered.
[2024-06-28 12:38] LABS: NT-proBNP 393 pg/ml
[2024-06-28] MEDS: PRANDIN PO (13:05)
--- NOTE | 2024-06-28 13:18 | PTCARENOTE ---
Pt with 29 second pause on quality assurance monitor body. Pt returned to Sinus rhythm. HR 80s. BP 144/77. Pacer pads in place.
[2024-06-28 13:30] LABS: TSH Reflex To Free T4 1.39 uIU/ml (0.47-4.68)
[2024-06-28 15:22] LABS: Glucose - Point of Care 120 mg/dl (70-99)
--- NOTE | 2024-06-28 16:18 | ITS.CL.PACE ---
[employer] - Pacemaker Implant
Pacemaker Implant
Procedure Report:
Primary Care Doctor: Brooks Clayton MD
Referring Top Loader: Jeremy Robledo MD
Procedure Date: 06/28/2024
Name of procedure:
1. Placement of a dual-chamber pacemaker with left bundle area pacing lead for conduction system pacing
2. Subclavian venography
History:
1. Patient is a very pleasant 78-year-old male with a past medical history significant for esophageal cancer status postchemotherapy and radiation with a left-sided port, GERD, duq-gjwfhys-xubmadtob diabetes, ongoing tobacco use who presented with
recurrent syncope. Patient had several episodes over the prior 48 hours prior to admission. While on telemetry monitoring during hospitalization, patient experienced a syncopal episode with a 17-second pause (preceding PAC followed by AV block).
Patient not on AV phan blocking agents.
2. Please refer to H&P for complete history.
Indication:
Paroxysmal complete heart block
Symptomatic pause
Syncope in the setting of heart block
Irreversible bradycardia/heart block
Methods:
After informed consent was obtained, the patient was brought to the EP laboratory in a postabsorptive, nonsedated state. Peripheral IV access was established. Prophylactic antibiotics were administered prior to incision. Continuous ECG, blood
pressure, and pulse oximetry were initiated. Cardioversion patch electrodes were placed on the patient's chest and back. A grounding patch was applied to the skin. Sedation was administered by anesthesia services.
In order to define the extrathoracic portion of the subclavian vein and exclude significant venous obstruction or anomalous anatomy, subclavian venography was performed prior to the procedure. Using the patient's right peripheral IV, contrast was
injected and images were recorded. The right subclavian vein and SVC were found to be widely patent.
The right chest was prepared and draped in a sterile fashion. A time-out was performed. Local anesthesia was injected in the subcutaneous tissue in the infraclavicular area. An incision was made medial to the deltopectoral groove. The
subcutaneous tissue was dissected the level of the prepectoral fascia. A subcutaneous pocket was created. Under fluoroscopic guidance and with the assistance of the images from the venogram, 2 separate venipunctures were made using micropuncture
and modified Seldinger technique. These were performed in the extrathoracic portion of the subclavian vein. Guidewires were passed and two peel-away sheaths were placed, and used to advance leads into the circulation.
Fluoroscopy was used to determine likely anatomic site for left bundle branch pacing. The Medtronic C315 sheath was used to deliver the Medtronic 3830 Selectsecure pacing lead with the helix exposed just exposed from the sheath tip during continuous
monitoring when pacemapping the septum during gentle clockwise rotation to obtain a paced QRS morphology of a W pattern in lead V1. Once the suspected optimal site was identified, lead deployment was performed with several rapid rotations as paced
QRS morphology was intermittently monitored until a paced QRS complex in lead V1 demonstrated development of an R wave (qR or rSR). Unipolar pacing impedance dropped by approximately 100 ohms suggesting it had reached the left ventricular
subendocardial. Stable VEgm injury current is present throughout lead position and at end of case. Final unipolar pacing impedance is 1040 Ohms. Unipolar pacing threshold is stable at 1.0 V @ 0.4 ms. The patient had pre-existing narrow QRS. Final
conduction system paced QRS complex duration is 129 ms, LVAT is 79 ms, and peak V5 -> peak V1 timing is 31 ms. The C315 sheath was slit under fluoroscopy ensuring lead position and stability.
Next, the right atrial lead was positioned in the right atrial appendage. Adequate sensing and pacing parameters were found, and no diaphragmatic stimulation was seen with high-output pacing. Both sheaths were split, and the leads were secured to
the fascia with Ethibond ties.
The pocket was flushed with antibiotic solution and hemostasis was assured. The generator was connected to the leads and placed inside the pocket. The device was sutured to the fascia. Antibiotic envelope was used. The wound was closed with 3
running layers of absorbable suture, and steri-strips were applied. Dressing applied over steri-strips in standard fashion.
Following the procedure, the patient was taken to the recovery area in stable condition. A chest x-ray to be obtained post procedure as routine.
Lead parameters and device programming:
- RA Lead (Medtronic, Model 5076, #[id number]): Sensing 3.1 mV, Pacing threshold 0.75 V at 0.4 ms, Imp 836 ohm
- RV Lead (Medtronic, Model 3830, #[id number]): Sensing 20.0 mV, Pacing threshold 0.75 V at 0.4 ms, Imp 950 ohm
- Device: Medtronic, Model W1DR01 pacemaker (#[id number]), programmed AAI-DDD 60-130 ppm
Conclusions:
1. Successful placement of a dual-chamber pacemaker with conduction system pacing (LBBAP)
2. Subclavian venography
Recommendations:
1. Return to patient room
2. Chest Xray today, [facility] in AM
3. IV antibiotics while the patient is admitted.
4. OK to resume home medications as indicated
5. Pressure dressing to be removed in AM, aquacell to remain until wound check
6. Follow-up will be arranged in the office in 7-10 days post-discharge
Von Lizarraga DO
Clinical Cardiac Calender Operator Helper
cc: Brooks Clayton MD; Jeremy Robledo MD
--- NOTE | 2024-06-28 18:03 | PTCARENOTE ---
Pt received s/p pacemaker placement. Right chest wall with pressure dressing in place. Right arm immobilizer in place. EKG obtained. Pt ordered dinner.
[2024-06-28] MEDS: ZESTRIL 10 MG PO (18:13)
[2024-06-28] MEDS: ORETIC 12.5 MG PO (18:13)
[2024-06-28] MEDS: CRESTOR 40 MG PO (18:13)
[2024-06-28] MEDS: LOVENOX 40 MG SC (18:14)
[2024-06-28 18:15] LABS: Troponin I 0.484 ng/ml
[2024-06-28] MEDS: ANCEF 5 IV (19:43)
[2024-06-29] VITALS (10 sets, daily range): BP systolic 103–135; BP diastolic 62–115; BMI 22.5
--- NOTE | 2024-06-29 00:19 | TRANSFER ---
Report called to Ene in IVU.
--- NOTE | 2024-06-29 01:22 | PTCARENOTE ---
Received patient from ICU into room 2251. Patient required one assist from WC to bed. Denies any dizziness. Tele monitor applied pt Sinus Tach-NSR w/ occasional PVCs. Denies any pain or discomfort. Right chest wall pressure dressing remains intact.
Right arm in immobilizer, and pt aware of activity restrictions. VSS. POC ongoing, call d[facility]port within reach.
[2024-06-29] MEDS: ANCEF 5 IV (03:54)
[2024-06-29 04:05] LABS: Hematocrit 41.4 % (39.0-52.0); Hemoglobin 14.1 g/dL (13.0-18.0); Mean Corp Hgb Conc. 34.1 g/dL (33.0-37.0); Mean Corpuscular Hgb 31.1 pg (27.0-31.0); Mean Corpuscular Volume 91.4 fL (80.0-94.0); Mean Platelet Volume 10.3 fL (7.4-10.4); Platelet Count 208 10^3/uL (130-400); Red Blood Cell Count 4.53 10^6/uL (4.70-6.10); Red Cell Dist. Width 12.2 % (11.5-14.5); White Blood Cell Count 9.7 10^3/uL (4.8-10.8)
[2024-06-29 04:17] LABS: Blood Urea Nitrogen 23 mg/dl (9-20); Calcium 9.5 mg/dl (8.4-10.2); Carbon Dioxide 23 mmol/L (22-30); Chloride 102 mmol/L (98-107); Estimated Creatinine Clearance 74 ml/min; Glucose 157 mg/dl (70-99); Magnesium 1.9 mg/dl (1.6-2.3); Potassium 4.1 mmol/L (3.5-5.1); Sodium 137 mmol/L (135-145); eGFR > 60.00
[2024-06-29 04:29] LABS: Troponin I 0.238 ng/ml
--- NOTE | 2024-06-29 06:53 | W.PN.HOSP.TC ---
Addendum entered and electronically signed by Venancio Spence MD 06/29/24 16:55:
Addendum
d/w certified prosthetist/orthotist , ok to discharge on Toprol, no HCTZ
d/w nursing staff, pt wants to go home
Total discharge time spent to see the patient, examine the patient, review data and lab results, discuss discharge plan with patient, nursing staff around 65 minutes
Original Note:
Today's Communication/Plan
-
f/w cardiology recommendations
Assessment / Plan
Assessment / Plan
Physical Exam
General: No Apparent Distress, Comfortable and Conversant
HEENT: Normocephalic and Moist mucous membranes
Respiratory: Clear
Cardiac: S1/S2 and Regular Rhythm. Clean dressing.
GI: Soft, Non Tender and Normal Bowel Sounds
Musculoskeletal: No Cyanosis and No Edema
Skin: Warm and Dry
Neuro: Awake, Alert, AO x 3, No Motor Deficits, Nonfocal/grossly intact, Cranial Nerves Intact and No Sensory Deficits
Psych: Calm and Intact Judgment/Insight
Assessment/Plan
Significant Symptomatic Pause on June 28, 2024
Recurrent syncopal events
Aborted cardiac arrest/17-second pause with syncope
-LINE PRODUCTION COOK was called;
-Patient passed out for a brief period of time during this event; after the episode, patient's mental status was back at baseline, tele with sinus rhythm in the 90s, systolic blood pressure 155 mmHg
-Transferred to ICU/IVU
-EKG, troponins, CBC, CMP, ABG
-Echocardiogram
-Cardiology consulted
Multiple Episodes of Syncope in the 24 to 30 Hours Prior to Arrival, at least some witnessed with shaking, LOC, grunting noises and post-ictal confusion
Above syncopal episodes suspected secondary to Episodes of Bradycardia and Pauses -- which can cause seizure symptoms
-Seizure precautions
-Neuro checks
-Orthostatic vital signs
-Patient did have prodromal symptoms suggesting possible component of vasovagal
-Has history of 'some damage to the bottom of his heart' (found in the )
-Monitor on telemetry
-Echo as above
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
-Neurology consultation appreciated
Elevated troponin, suspected nonischemic myocardial injury secondary to above
Esophageal cancer (last chemo/radiation was in February 2024; followed by waiter and cashier Dr. Clayton)
-Follow-up with Dr. Clayton
Diabetes Mellitus
-Continue most home meds
-Monitor glucose
'Some damage to the bottom of heart' (found in the )
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
DVT Prophylaxis: Lovenox
Code Status: Full Code
Total time spent to see the patient, examine the patient, review data and lab results, discuss treatment plan with patient, nursing staff around 55 minutes
Anticipated Discharge: Within 24 hours
Subjective/Interval History
-
Date of Service: June 29, 2024
He feels better
No chest pain
No fevers
Objective Data
-
Labs:
Laboratory Results
06/29/24
03:12
WBC 9.7
Hgb 14.1
Hct 41.4
Plt Count 208
Sodium 137
Potassium 4.1
Chloride 102
Carbon Dioxide 23
BUN 23 H
Creatinine 0.8
Glucose 157 H
Calcium 9.5
Vital Signs:
Vital Signs
Temp Pulse Resp BP Pulse Ox
97.9 F 91 16 120/67 94
06/29/24 03:04 06/29/24 05:00 06/29/24 03:04 06/29/24 03:04 06/29/24 03:04
I&O
06/27/24 06/28/24 06/29/24
06:59 06:59 06:59
Intake Total 480 / 480 360 / 360
Output Total 300 / 300
Balance 480 / 480 60 / 60
--- NOTE | 2024-06-29 08:02 | W.PN.CARDCBS ---
Addendum entered and electronically signed by Ósacr Robledo MD 06/29/24 12:30:
I saw and examined the patient.
The Head Athletic Trainer/Strength Coach's note was reviewed and I agree with the note.
Comment:
GEN: No distress, awake, Ox3
HEENT: supple, anicteric, mmm
LUNGS: CTA, no wheezes/rales
CV: Reg, S1/S2, 1/6 syst LSB, no gallop
ABD: soft, BS+, NT/ND
EXT: No edema
NEURO: Gross non-focal
SKIN: dressing intact
Plan:
Doing well status post permanent pacemaker. Check device interrogation today.
Start Toprol 12.5 mg daily. Hold hydrochlorothiazide as outpatient okay to continue lisinopril.
For possible discharge later today.
Addendum entered and electronically signed by Lorrie Hackett PA-C 06/29/24 08:26:
device interrogation with well functioning ppm, elevated HRs. toprol added today.
Original Note:
Today's Communication / Plan
-
s/p PPM
ST on tele. awaiting AM device interrogation. holding OP lisinopril/HCTZ. start toprol 12.5mg daily
ambulate
possible DC later today
Impression / Plan
-
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
Assessment:
Recurrent syncopal events
Aborted cardiac arrest/17-second pause with syncope
Elevated troponin, suspected nonischemic myocardial injury secondary to above
Hyponatremia, mild
Esophageal cancer status post chemotherapy and radiation
GERD
Ene-fwdzcpw-pigiynhvo diabetes
Ongoing tobacco use
ECHO 06/28/24: EF 60-65%, no RWMA, stage 1 diastolic dysfunction, mitral sclerosis, MAC, mild MR, aortic sclerosis
Plan:
-Patient presented with recurrent syncopal events. Head CT without acute abnormalities. was noted to have syncopal event associated with cardiac arrest/17-second pause with spontaneous return of circulation 06/28 and underwent Medtronic DC PPM
placement 06/28/24.
-feeling well this morning, no pain
-in ST upon review of tele. awaiting results of device interrogation this AM
-holding OP lisinopril/HCTZ. add toprol 12.5mg daily
-echo with results as above
-TSH WNL
-trop peaked at 0.484 likely nonischemic myocardial injury in setting of 17 second pause/arrest. no CP. could consider for OP ischemic evaluation once recovered
-ambulate patient
-he is eager for DC, possibly later today. OP cardiac follow up arranged
-d/w nursing
Progress Note - Broomcorn Thresher
Subjective
Date of Service: June 29, 2024
did not sleep well overnight. denies pain
Objective
Labs:
06/29/24 03:12
06/29/24 03:12
Labs
Hgb 14.1 g/dL (13.0-18.0) 06/29/24 03:12
Hct 41.4 % (39.0-52.0) 06/29/24 03:12
Plt Count 208 10^3/uL (130-400) 06/29/24 03:12
PT 13.7 Sec (11.4-14.6) 06/28/24 11:11
INR 1.00 06/28/24 11:11
APTT 29.4 Sec (23.4-35.0) 06/28/24 11:11
Sodium 137 mmol/L (135-145) 06/29/24 03:12
Potassium 4.1 mmol/L (3.5-5.1) 06/29/24 03:12
BUN 23 mg/dl (9-20) H 06/29/24 03:12
Creatinine 0.8 mg/dL (0.7-1.3) 06/29/24 03:12
Glucose 157 mg/dl (70-99) H 06/29/24 03:12
Troponins
06/27/24 06/28/24 06/28/24
11:26 11:18 17:35
Troponin I < 0.012 < 0.012 0.484 H* D
06/28/24 06/29/24
23:15 03:12
Troponin I Cancelled 0.238 H*
Vital Signs and I&O:
Vital Signs
Temp Pulse Resp BP Pulse Ox
97.9 F 91 16 120/67 94
06/29/24 03:04 06/29/24 05:00 06/29/24 03:04 06/29/24 03:04 06/29/24 03:04
Vital Signs
Temp Pulse Resp BP Pulse Ox
97.9 F 91 16 120/67 94
06/29/24 03:04 06/29/24 05:00 06/29/24 03:04 06/29/24 03:04 06/29/24 03:04
Intake & Output
06/27/24 06/28/24 06/29/24 06/30/24
07:59 07:59 07:59 07:59
Intake Total 480 / 480 360 / 360
Output Total 300 / 300
Balance 480 / 480 60 / 60
Physical Exam
Physical Exam
GEN: No distress, awake, alert, oriented x3
HEENT: supple, anicteric, mmm, eomi
LUNGS: CTA B/L, no wheezes/rales
CV: Reg and tachy, S1/S2, no murmur
ABD: soft, BS+, NT/ND
EXT: No cyanosis, clubbing, edema
NEURO: Gross non-focal
SKIN: Warm, pink, dry. No rash. R chest site with pressure dressing c/d/i. L chest port
[2024-06-29] MEDS: TOPROL XL 12.5 MG PO (08:32)
[2024-06-29] MEDS: PRANDIN 1 MG PO ×2 (08:37→12:24)
[2024-06-29] MEDS: FARXIGA 10 MG PO (08:37)
[2024-06-29] MEDS: PROTONIX 40 MG PO (08:37)
[2024-06-29] MEDS: JANUVIA 100 MG PO (08:37)
--- NOTE | 2024-06-29 10:52 | CM ---
Chart reviewed . Patient is independent of ADLS, lives with his in a [address], [address], 0 DME. Plan is for the patient to return home. CM to follow.
--- NOTE | 2024-06-29 14:43 | PTCARENOTE ---
Discussed post PPM instructions w/ pt and his . Discussed metoprolol. Will monitor.
--- NOTE | 2024-06-29 16:56 | W.DCSUMMARY ---
Discharge Summary
Discharge Data
Date of Admission: 06/28/24
Date of Discharge: 06/29/24
-
Pending Results: No
Hospital Course
78 years old male presented to the emergency department with recurrent syncopal episodes. Scan of the head showed diffuse cortical and cerebellar atrophy. Patient was evaluated by neurologist. Initial diagnosis with possible syncopal episode
versus seizures. Electroencephalogram showed no evidence of focal slowing or epileptiform activity. Patient had another episode of symptomatic seizure-like activity in the hospital. He was noted to have cardiac pauses on telemetry. Patient was
diagnosed with paroxysmal complete heart block/irreversible bradycardia. He was evaluated by auto self service station attendant. Echocardiogram showed left ventricular ejection fraction of 60 to 65%. Normal right ventricular size and function. Stage I diastolic
dysfunction, mild mitral regurgitation, trace tricuspid regurgitation. Patient underwent permanent dual-chamber pacemaker placement/Medtronic. Postprocedure, patient was started on low-dose Toprol. Lisinopril was continued but hydrochlorothiazide
was stopped. Patient was advised not to drive until he he follows with his primary auto self service station attendant and outpatient primary care doctor. Patient remained hemodynamically stable and was discharged in a stable condition.
Discharge Plan
-
Patient Disposition: Home (Routine Discharge)
Discharge Diagnosis/Procedures: syncope, Pacemaker implant
Primary Hypertension, we changed your medications, please note new recommendations.
No driving until you see auto self service station attendant/primary care doctor.
Diet: As tolerated
Activity: Other activity
Additional Activity: see device sheet
Driving Restrictions: No driving until you see the auto self service station attendant
Bathing Restrictions: OK to Shower
Stand Alone Forms: DC Inst - Implanted Device
Referrals:
[facility] [Provider Group] - 07/06/24 11:20 am (Incision check appointment)
Jesus Alvarez MD [Family Provider] -
Kira Valenzuela MD [Active] - in one month
Prescriptions:
New
lisinopril 10 mg Tablet
10 mg PO QPM Qty: 30 0RF
metoprolol succinate 25 mg Tablet Extended Release 24 Hr
25 mg PO DAILY Qty: 30 0RF
Continued
repaglinide 1 mg Tablet
1 mg PO TID
rosuvastatin 40 mg Tablet
40 mg PO QPM
Januvia 100 mg Tablet
100 mg PO DAILY
Jardiance 10 mg Tablet
10 mg PO DAILY
metformin 500 mg Tablet Extended Release 24 Hr
500 mg PO DAILY
acetaminophen [Tylenol] 325 mg Tablet
650 mg PO DAILYPRN PRN (Reason: mild pain)
aspirin 325 mg Tablet
325 mg PO DAILYPRN PRN (Reason: chest pain)
pantoprazole [Protonix] 40 mg Tablet,Delayed Release (Dr/Ec)
40 mg PO DAILY
Discontinued
lisinopril-hydrochlorothiazide 10-12.5 mg Tablet
1 tab PO QPM
Discharge Orders:
Discharge Patient (As Directed); Ordered 06/29/24
Ordered By: Venancio Spence
Care Plan Goals
Care Plan Goals:
Problem: Readiness for enhanced knowledge related to diagnosis and treatment plan
Goal: Understand your diagnosis and treatment plan needs, including medications if applicable.
Instructions: Know your diagnosis, underlying causes and treatment plan options, including medications if applicable. Consult with your health care team to learn about your diagnosis and treatment plan, including medications if applicable.
Discharge Date and Time
Print Language: AMHARIC
[2024-06-29] MEDS: LOVENOX SC (17:42)
[2024-06-29] MEDS: CRESTOR 40 MG PO (17:50)
[2024-06-29] MEDS: ZESTRIL 10 MG PO (17:50)
[2024-06-29] MEDS: PRANDIN PO (17:53)
[2024-06-29 20:09] LABS: Hepatitis C Antibody Negative (Negative)
== END 2024-06-29 18:27 | disposition home or self-care (01) | DRG 242 ==
LOC: IVU 12:01
PROVIDERS: Internal Medicine Cardiovascular Disease; Nuclear Medicine Nuclear Cardiology; ADMITTING PHYSICIAN Hospitalist; ATTENDING PHYSICIAN Internal Medicine; CONSULT PHYSICIAN Internal Medicine Cardiovascular Disease; CONSULT PHYSICIAN Psychiatry & Neurology Neurology; EMERGENCY PHYSICIAN Emergency Medicine; FAMILY PHYSICIAN Internal Medicine
PROC: 02HK3JZ Insertion of Pacemaker Lead into Right Ventricle, Percutaneous Approach (ICD-10-PCS; 2024-06-28)
PROC: 0JH606Z Insertion of Pacemaker, Dual Chamber into Chest Subcutaneous Tissue and Fascia, Open Approach (ICD-10-PCS; 2024-06-28)
PROC: B5161ZZ Fluoroscopy of Right Subclavian Vein using Low Osmolar Contrast (ICD-10-PCS; 2024-06-28)
PROC: 02H63JZ Insertion of Pacemaker Lead into Right Atrium, Percutaneous Approach (ICD-10-PCS; 2024-06-28)
PROC: 4B02XSZ Measurement of Cardiac Pacemaker, External Approach (ICD-10-PCS; 2024-06-29)
DX: I49.5 Sick sinus syndrome (principal); I46.9 Cardiac arrest, cause unspecified; I44.2 Atrioventricular block, complete; C15.9 Malignant neoplasm of esophagus, unspecified; E87.1 Hypo-osmolality and hyponatremia; I5A Non-ischemic myocardial injury (non-traumatic); R55 Syncope and collapse; I10 Essential (primary) hypertension; E78.00 Pure hypercholesterolemia, unspecified; R56.9 Unspecified convulsions; E11.9 Type 2 diabetes mellitus without complications; K21.9 Gastro-esophageal reflux disease without esophagitis; G62.9 Polyneuropathy, unspecified; N40.0 Benign prostatic hyperplasia without lower urinary tract symptoms; I05.8 Other rheumatic mitral valve diseases; F17.200 Nicotine dependence, unspecified, uncomplicated; Z92.21 Personal history of antineoplastic chemotherapy; Z92.3 Personal history of irradiation; Z85.01 Personal history of malignant neoplasm of esophagus; Z79.84 Long term (current) use of oral hypoglycemic drugs; Z79.82 Long term (current) use of aspirin; Z80.8 Family history of malignant neoplasm of other organs or systems
CPT/HCPCS: 33208; 36600; 71045; 80048; 80053; 82607; 82805; 82962; 83735; 83880; 84155; 84165; 84425; 84443; 84484; 85025; 85027; 85610; 85730; 86803; 93005; 93306; 95816; 96360; 99285; C1769; C1785; C1887; C1892; C1898; J2997; Q9967

== ENCOUNTER 2024-07-23 11:58 | Emergency (ER) | payer OTHER, SELFPAY ==
[2024-07-23 12:01] VITALS: BP 155/80
[2024-07-23 12:26] LABS: % Basophils 0.5 % (0-2); % Eosinophils 1.6 % (0-6); % Immature Granulocytes 0.4 % (0-0.5); % Lymphocytes 6.3 % (20.5-51.1); % Monocytes 7.1 % (1.7-9.3); % Neutrophils 84.1 % (42.2-75.2); Absolute Eosinophils 0.1 10^3/uL (0-0.7); Absolute Lymphocytes 0.5 10^3/uL (1.2-3.4); Absolute Monocytes 0.5 10^3/uL (0.1-0.6); Absolute Neutrophils 6.3 10^3/uL (1.4-6.5); Hematocrit 41.8 % (39.0-52.0); Hemoglobin 14.5 g/dL (13.0-18.0); Mean Corp Hgb Conc. 34.7 g/dL (33.0-37.0); Mean Corpuscular Hgb 31.7 pg (27.0-31.0); Mean Corpuscular Volume 91.3 fL (80.0-94.0); Mean Platelet Volume 9.9 fL (7.4-10.4); Nucleated Red Blood Cells % 0 % (-); Platelet Count 200 10^3/uL (130-400); Red Blood Cell Count 4.58 10^6/uL (4.70-6.10); Red Cell Dist. Width 13.1 % (11.5-14.5); White Blood Cell Count 7.5 10^3/uL (4.8-10.8)
[2024-07-23 12:42] LABS: ALT (SGPT) 20 U/L (0-50); AST (SGOT) 22 U/L (17-59); Albumin 4.7 g/dl (3.5-5.0); Alkaline Phosphatase 108 U/L (38-126); Blood Urea Nitrogen 21 mg/dl (9-20); Calcium 9.6 mg/dl (8.4-10.2); Carbon Dioxide 23 mmol/L (22-30); Chloride 103 mmol/L (98-107); Glucose 221 mg/dl (70-99); Potassium 5.2 mmol/L (3.5-5.1); Sodium 134 mmol/L (135-145); Total Bilirubin 0.9 mg/dl (0.2-1.3); Total Protein 7.3 g/dl (6.3-8.2); eGFR > 60.00
--- NOTE | 2024-07-23 12:45 | ED.GENMED ---
History of Present Illness
General
Chief Complaint: Dizziness
Source: patient
Exam Limitations: none
Time Seen by Provider: 07/23/24 12:30
Nursing documentation reviewed up to this point in time: agreed with
History of Present Illness
History of Present Illness:
Patient's status post pacemaker placement last month secondary to syncopal episodes secondary to heart block, presents to ED secondary to sudden onset of dizziness, as he was walking back to his bed from restroom earlier this morning. Since then,
patient has had intermittent, continual symptoms, but not as severe. Denies room spinning sensation. Denies headache. Denies loss of sensation or weakness. Denies difficulty with speech. Patient reports unsteadiness when ambulating secondary to
dizziness. Denies recent change in medications or diet. Patient states that since he was discharged home 1 month ago, patient has had intermittent dizziness, but not as severe as today.
Past History
Past History
ED Past Medical History: Cancer (esophageal s/p radiation and chemotherapy (01/2024)), HTN, Hypercholesterolemia and NIDDM
ED Past Surgical History: Appendectomy
Social History
Tobacco: Non-smoker
Alcohol: None
Drug: None
Personal:
Living: with family
Review of Systems
Review of Systems
Allergies reviewed?: Yes
All Other Systems: ROS reviewed and negative except as documented in HPI and ROS
Constitutional: Reports no symptoms; Denies fever
EENT: Reports no symptoms
Respiratory: Reports no symptoms; Denies trouble breathing
Cardiac: Reports no symptoms; Denies palpitations
ABD/GI: Reports no symptoms; Denies nausea or vomiting
Musculoskeletal: Reports no symptoms
Skin: Reports no symptoms
Neurological: Reports no symptoms and dizzy; Denies headache or weakness
Phy Exam
Physical Exam
Physical Exam:
General: well nourished male, in no acute distress. afebrile
Heent: nc/at. eomi
Lungs: cta
Heart: rrr. no murmur
Abd: soft and nontender
Neuro: aao x 3. no focal neurological deficit. normal gait
Skin: warm to touch. no rash.
Ext: no edema
Psych: pleasant and cooperative
Course
Orders/Labs/Results
Orders:
Orders
07/23/24 12:03
ECG [Electrocardiogram (*1)] Urgent
Reason for Study: Vertigo / Dizzy
07/23/24 12:04
EKG- Treatment ONCE
07/23/24 12:10
CT Head W/o Iv Contrast Urgent
Comment:
Reason For Exam: dizziness
07/23/24 12:[address] Non Medication Order As Directed
Physician Order: check medtronic pacemaker
Above order entered?: Yes
07/23/24 12:20
Complete Blood Count/With Diff Urgent
Comprehensive Metabolic Panel Urgent
Troponin I Urgent
07/23/24 13:05
Orthostatic VS- Treatment ONCE
0.9% Sodium Chloride 500 ml [Nss] 500 ml IV BOLUS
Abnormal Lab Results
07/23/24
12:20
RBC 4.58 L 10^6/uL
(4.70-6.10)
MCH 31.7 H pg
(27.0-31.0)
Absolute Lymphs (auto) 0.5 L 10^3/uL
(1.2-3.4)
Neutrophils % 84.1 H %
(42.2-75.2)
Lymphocytes % 6.3 L %
(20.5-51.1)
Sodium 134 L mmol/L
(135-145)
Potassium 5.2 H mmol/L
(3.5-5.1)
BUN 21 H mg/dl
(9-20)
Glucose 221 H mg/dl
(70-99)
07/23/24 12:20
07/23/24 12:20
Vital Signs
Initial and Last Documented VS:
Initial Vital Signs
Temp Pulse Resp BP Pulse Ox
98.2 F 97 20 155/80 97
07/23/24 12:01 07/23/24 12:01 07/23/24 12:01 07/23/24 12:01 07/23/24 12:01
Last Documented Vital Signs
Temp Pulse Resp BP Pulse Ox
98.2 F 97 20 155/80 97
07/23/24 12:01 07/23/24 12:01 07/23/24 12:01 07/23/24 12:01 07/23/24 12:01
MDM/Problems Addressed
MDM/Problems Addressed:
Orthostatic vital signs checked.
CT head: NAD.
Discussed with oncall neurology, Dr. Valenzuela. Pt is not a candidate for MRI, due to pacemaker. Recommends OP rehab evaluation, including tilt table and balance evaluation. In addition, in light of intermittent sinus fullness sensation, will provide
ENT f/u as well.
Pt and spouse expressed understanding at time of discharge. Pt is otherwise well appearing, hemodynamically stable, and neurologically intact at discharge.
*Critical Care Note
Total Time (30-74mins, 75-104mins- exclusive of procedures): Not Applicable
ED Attending Note
-
Portions of this chart may have been created with voice recognition software.� Occasional wrong word or��sound alike� substitutions may have occurred due to the inherent limitations of voice recognition software.
Discharge Plan
Departure
Patient Disposition: Home (Routine Discharge)
Date of Disposition: 07/23/24
Time of Disposition: 14:18
Patient with high blood pressure during this ER visit?: Yes
Condition: Good
Discharge Problem:
Dizziness
Instructions: Dizziness
Prescriptions:
No Action
repaglinide 1 mg Tablet
1 mg PO TID
rosuvastatin 40 mg Tablet
40 mg PO QPM
Januvia 100 mg Tablet
100 mg PO DAILY
Jardiance 10 mg Tablet
10 mg PO DAILY
metformin 500 mg Tablet Extended Release 24 Hr
500 mg PO DAILY
acetaminophen [Tylenol] 325 mg Tablet
650 mg PO DAILYPRN PRN (Reason: mild pain)
aspirin 325 mg Tablet
325 mg PO DAILYPRN PRN (Reason: chest pain)
pantoprazole [Protonix] 40 mg Tablet,Delayed Release (Dr/Ec)
40 mg PO DAILY
lisinopril 10 mg Tablet
10 mg PO QPM Qty: 30 0RF
metoprolol succinate 25 mg Tablet Extended Release 24 Hr
25 mg PO DAILY Qty: 30 0RF
Referrals:
Kira Valenzuela MD [Active] -
Abilio Thompson MD [Active] -
UNKNOWN - PT DOES,NOT KNOW [Unknown Provider] -
Activity Restrictions/Additional Instructions:
As discussed, please follow up with referred neurology/ENT physician for further evaluation and treatment. In addition, please contact outpatient physical department at [phone] to make an appt for evaluation for dizziness/balance.
Interventions
Interventions:
*General Assessment Last Done: 07/23/24 12:01
*Neglect/Abuse Screening Last Done: 07/23/24 12:58
*ED COVID-19 Vaccine History Last Done: 07/23/24 12:58
*Nursing Disposition Last Done: 07/23/24 15:18
ED- Neurological Assessment Last Done: 07/23/24 12:58
ED- Cardiac Assessment Last Done: 07/23/24 12:58
Discharge Date and Time
Discharge Date/Time: 07/23/24 15:18
Print Language: GUINEAN
[2024-07-23 12:54] LABS: Troponin I < 0.012 ng/ml
[2024-07-23 12:57] VITALS: BMI 22.8
[2024-07-23 13:13] VITALS: BP 136/67; BP 138/60; BP 147/75; PULSE 105; PULSE 87; PULSE 95
[2024-07-23] MEDS: NSS 500 IV (13:22)
== END 2024-07-23 15:18 | disposition home or self-care (01) ==
LOC: EMR 11:58
PROVIDERS: EMERGENCY PHYSICIAN Emergency Medicine; FAMILY PHYSICIAN Internal Medicine
DX: R42 Dizziness and giddiness (principal); I45.9 Conduction disorder, unspecified; I10 Essential (primary) hypertension; E78.00 Pure hypercholesterolemia, unspecified; E11.9 Type 2 diabetes mellitus without complications; Z90.49 Acquired absence of other specified parts of digestive tract; Z92.21 Personal history of antineoplastic chemotherapy; Z92.3 Personal history of irradiation; Z95.0 Presence of cardiac pacemaker
CPT/HCPCS: 99284; 96360; 70450; 80053; 84484; 85025; 93005

== ENCOUNTER 2024-08-03 06:07 | Day surgery (SDC) | payer OTHER, SELFPAY ==
[2024-08-03 06:40] VITALS: BP 164/71; BMI 22.8
[2024-08-03 06:53] LABS: Glucose - Point of Care 234 mg/dl (70-99)
[2024-08-03 07:00] VITALS: BMI 22.8
[2024-08-03 09:19] VITALS: BP 115/68
[2024-08-03 09:30] VITALS: BP 108/82
[2024-08-03 09:45] VITALS: BP 112/63
== END 2024-08-03 10:00 | disposition home or self-care (01) ==
LOC: GI 06:07
PROVIDERS: ATTENDING PHYSICIAN Internal Medicine Gastroenterology
DX: K22.710 Barrett's esophagus with low grade dysplasia (principal); K22.89 Other specified disease of esophagus; K44.9 Diaphragmatic hernia without obstruction or gangrene; Z08 Encounter for follow-up examination after completed treatment for malignant neoplasm; Z85.01 Personal history of malignant neoplasm of esophagus
CPT/HCPCS: 43254; 43239; 88305; 82962

== ENCOUNTER 2024-08-17 06:14 | Outpatient (RCR) | payer OTHER, SELFPAY | END 2024-08-17 23:59 | disposition home or self-care (01) | LOC: RPT 06:14 | PROVIDERS: ATTENDING PHYSICIAN Internal Medicine | DX: H81.12 Benign paroxysmal vertigo, left ear (principal); Z73.6 Limitation of activities due to disability | CPT/HCPCS: 97112; 97162 ==

== ENCOUNTER 2024-08-24 11:46 | Outpatient (RCR) | payer OTHER, SELFPAY | END 2024-08-24 23:59 | disposition home or self-care (01) | LOC: RPT 11:46 | PROVIDERS: ATTENDING PHYSICIAN Internal Medicine | DX: H81.12 Benign paroxysmal vertigo, left ear (principal); Z73.6 Limitation of activities due to disability; R26.2 Difficulty in walking, not elsewhere classified | CPT/HCPCS: 97112 ==

== ENCOUNTER → 2025-02-22 07:05 | Outpatient (REF) | payer OTHER, SELFPAY | LOC: HWRCS 07:05 | PROVIDERS: ATTENDING PHYSICIAN Internal Medicine Cardiovascular Disease; FAMILY PHYSICIAN Internal Medicine | DX: I49.5 Sick sinus syndrome (principal); R55 Syncope and collapse; R53.83 Other fatigue | CPT/HCPCS: 78452; 93017; A9500; J2785 ==